=== PATIENT | female | born 1990 | race Caucasian/White ===

== ENCOUNTER 2019-08-17 12:47 | Outpatient (CLI) | payer OTHER ==
--- NOTE | 2019-08-17 17:16 | Ultrasound Report ---
PROCEDURE: OB First Trimester INDICATIONS: POSITIVE TEST OUTSIDE/PRIOR DATING DATA: Last menstrual period (LMP): 06/25/2019. LMP-based estimated date of delivery (SHARYN): 03/31/2020. First dating scan (date and location): 08/17/2019. Estimated date of delivery (SHARYN) from first dating scan: 03/29/2020. TECHNIQUE: Real-time scanning was performed of the fetus and maternal pelvic organs, with image documentation. COMPARISON: None FINDINGS: Embryo: Single live intrauterine is identified with crown-rump length measuring 1.5 cm cor responding to 7 weeks 6 days. heart rate is identified at 165 bpm. Cervical length is within no rmal limits. Measurement variability in dating: +/- 4 weeks by LMP, +/- 7 days by mean sac diameter (use before 6 weeks gestation if crown-rump length not able to be measured), +/- 5 days by crown-rump length (6-12 weeks gestation). Maternal organs: Ovaries are unremarkable, noting right-sided corpus luteal cyst.. Limited images t hrough the kidneys demonstrate no hydronephrosis. IMPRESSION: 1. Single live intrauterine with ultrasound gestational age of 17 weeks 6 days with ultraso und SHARYN of 03/29/2020. 2. Recommend follow-up imaging at 20-22 weeks for dates and anatomy. Reviewed by: Moira Rubio MD on 08/17/2019 5:15 PM PDT Approved by: Moira Rubio MD on 08/17/2019 5:15 PM PDT Station ID: [id number]
== END 2019-08-17 12:48 | disposition home or self-care (01) ==
LOC: DI 12:47
PROVIDERS: ATTEND Advanced Practice Midwife
DX: Z32.01 Encounter for pregnancy test, result positive (principal)
CPT/HCPCS: 76801

== ENCOUNTER 2019-08-26 08:00 | Outpatient (CLI) | payer OTHER ==
[2019-08-26 16:08] LABS: BILIRUBIN,URINE NEGATIVE (NEGATIVE); GLUCOSE, URINE (UA) NEGATIVE (NEGATIVE); KETONES,URINE (UA) NEGATIVE (NEGATIVE); LEUKOCYTE ESTERASE, URINE NEGATIVE (NEGATIVE); NITRITE,URINE NEGATIVE (NEGATIVE); OCCULT BLOOD,URINE NEGATIVE (NEGATIVE); PROTEIN,URINE NEGATIVE (NEGATIVE); UROBILINOGEN,URINE 0.2 (NORMAL) E.U./dL (NORMAL)
[2019-08-26 16:15] LABS: BACTERIA,URINE Many /HPF (None Seen); CLARITY,URINE HAZY (CLEAR); RBC,URINE None Seen /HPF (0-5); SQUAMOUS EPITHELIAL CELL,UR MANY Squamous (<= Few)
[2019-08-26 19:29] LABS: TRICHOMONAS VAGINALIS DNA NEGATIVE (NEGATIVE)
== END 2019-08-26 23:59 | disposition home or self-care (01) ==
LOC: LAB.R 08:00
PROVIDERS: ATTEND Radiology Diagnostic Radiology
DX: Z34.90 Encounter for supervision of normal pregnancy, unspecified, unspecified trimester (principal); Z36.89 Encounter for other specified antenatal screening; Z11.3 Encounter for screening for infections with a predominantly sexual mode of transmission
CPT/HCPCS: 81001; 87086; 87491; 87591; 87661

== ENCOUNTER 2019-12-29 14:56 | Outpatient (CLI) | payer OTHER ==
--- NOTE | 2019-12-30 08:25 | Ultrasound Report ---
PROCEDURE: OB Detailed Eval INDICATIONS: SCREENING, SUPERVISION OF OUTSIDE/PRIOR DATING DATA: Last menstrual period (LMP): 06/25/2019. LMP-based estimated date of delivery (SHARYN): 03/31/2020. First dating scan (date and location): 08/17/2019. Estimated date of delivery (SHARYN) from first dating scan: 03/29/2019. TECHNIQUE: Real-time scanning was performed of the fetus, with image documentation and biometric measurements. Endovaginal scanning: Performed COMPARISON: None. FINDINGS: General: A single living intrauterine gestation is present. Presentation: Cephalic Placenta: Placental position is anterior, without previa. Amniotic fluid index: 12.7 cm, normal for gestational age. heart rate: 140 beats per minute. Maternal cervical canal: 3.8 cm long; normal length is 2.5 cm or more. biometrics: Biparietal diameter: 7.1 cm Head circumference: 26 cm Abdominal circumference: 23 cm Femur length: 5 cm Estimated gestational age from initial scan: not applicable. Composite gestational age from present scan: 27 weeks 6 days Estimated weight and percentile: 1100 g, 63rd percentile Measurement variability in biometric dating: +/- 10 days from 12-20 weeks gestation, +/- 2 weeks from 20-30 weeks gestation, +/- 3 weeks at 30 weeks gestation or later. Anatomic survey: Neuro: Ventricles are normal at less than 10 mm. Cisterna magna is normal at 3-11 mm. Cerebellum i s normal in size and morphology. Nuchal skin fold: Normal at less than 6 mm between 14 and 20 weeks gestational age. Face: Nose and lips, facial profile are normal. Spine: No evidence for spina bifida. Heart: 4-chambered heart is present, with normal ventricular outflow tracts. Diaphragm: Diaphragm is intact. Stomach: Left-sided stomach is present. Kidneys: No hydronephrosis. Normal is less than 5 mm in 2nd trimester, less than 7 mm in 3rd trimester. Cord: 3 vessel cord has orthotopic insertion. Bladder: Normal in size. Extremities: All 4 extremities are visualized. IMPRESSION: Normal anatomic survey. Reviewed by: Robert Fu MD on 12/30/2019 8:24 AM PST Approved by: Robert Fu MD on 12/30/2019 8:24 AM PST Station ID: [id number]
== END 2019-12-29 14:57 | disposition home or self-care (01) ==
LOC: DI 14:56
PROVIDERS: ATTEND Advanced Practice Midwife
DX: Z34.92 Encounter for supervision of normal pregnancy, unspecified, second trimester (principal); Z36.89 Encounter for other specified antenatal screening
CPT/HCPCS: 76811

== ENCOUNTER 2019-12-31 17:19 | Outpatient (CLI) | payer OTHER ==
[2019-12-31 18:40] LABS: HGB - HEMOGLOBIN 11.7 g/dL (12.0-16.0); MEAN CORPUSCULAR HEMOGLOBIN 30.5 pg (27.0-31.0); MEAN CORPUSCULAR HGB CONC 34.4 g/dL (32.0-36.0); MEAN CORPUSCULAR VOLUME 88.5 fL (81.0-99.0); RED BLOOD COUNT 3.84 10^6/uL (4.20-5.40); RED CELL DISTRIBUTION WIDTH 12.8 % (12.0-15.0); WHITE BLOOD COUNT 11.1 x10^3/uL (4.8-10.8)
== END 2019-12-31 17:20 | disposition home or self-care (01) ==
LOC: LAB 17:19
PROVIDERS: ATTEND Advanced Practice Midwife
DX: Z34.90 Encounter for supervision of normal pregnancy, unspecified, unspecified trimester (principal); Z36.89 Encounter for other specified antenatal screening
CPT/HCPCS: 36415; 82950; 85027

== ENCOUNTER 2020-01-13 08:00 | Outpatient (CLI) | payer OTHER ==
[2020-01-13 21:59] LABS: CANDIDA GROUP DNA NEGATIVE (NEGATIVE); CANDIDA KRUSEI DNA NEGATIVE (NEGATIVE); TRICHOMONAS VAGINALIS DNA NEGATIVE (NEGATIVE)
== END 2020-01-13 23:59 | disposition home or self-care (01) ==
LOC: LAB.R 08:00
PROVIDERS: ATTEND Advanced Practice Midwife
DX: O99.891 Other specified diseases and conditions complicating pregnancy (principal); N89.8 Other specified noninflammatory disorders of vagina
CPT/HCPCS: 87661; 87801

== ENCOUNTER 2020-02-01 08:30 | Outpatient (CLI) | payer OTHER ==
--- NOTE | 2020-02-01 13:01 | Ultrasound Report ---
PROCEDURE: OB F/U or Repeat INDICATIONS: UTERINE SIZE > DATES DISCREPANCY OUTSIDE/PRIOR DATING DATA: Last menstrual period (LMP): 06/25/2019. LMP-based estimated date of delivery (SHARYN): 03/31/2020. First dating scan (date and location): 08/17/2019. Estimated date of delivery (SHARYN) from first dating scan: 03/29/2020. TECHNIQUE: Real-time scanning was performed of the fetus, with image documentation and biometric measurements. COMPARISON: None. FINDINGS: General: A single living intrauterine gestation is present. Presentation: Vertex Placenta: Placental position is anterior, without previa. Amniotic fluid index: 15.8 cm, 59th percentile for gestational age. heart rate: 152 beats per minute. Maternal cervical canal: 3.4 cm long; normal length is 2.5 cm or more. biometrics: Biparietal diameter: 8.3 cm, 33 weeks 3 days Head circumference: 29.9 cm, 33 weeks 1 day Abdominal circumference: 29.1 cm, 33 weeks 1 day Femur length: 5.7 cm, 30 weeks 0 days Estimated gestational age from initial scan: 31 weeks 6 days Composite gestational age from present scan: 32 weeks 1 day Estimated weight and percentile: 1931 g, 51st percentile Measurement variability in biometric dating: +/- 10 days from 12-20 weeks gestation, +/- 2 weeks from 20-30 weeks gestation, +/- 3 weeks at 30 weeks gestation or more. Other: Not applicable. IMPRESSION: Single live intrauterine gestation with biometric parameters as described above. Reviewed by: Robert Fu MD on 02/01/2020 1:00 PM PST Approved by: Robert Fu MD on 02/01/2020 1:00 PM PST Station ID: [id number]
== END 2020-02-01 08:31 | disposition home or self-care (01) ==
LOC: DI 08:30
PROVIDERS: ATTEND Advanced Practice Midwife
DX: O26.843 Uterine size-date discrepancy, third trimester (principal); Z3A.31 31 weeks gestation of pregnancy

== ENCOUNTER 2020-03-15 21:19 | Emergency (ER) | payer OTHER ==
[2020-03-15 23:15] VITALS: BP 113/76
--- NOTE | 2020-03-15 23:17 | ED Physician Documentation ---
History of Present Illness - Stated complaint Stated Complaint: RT LEG PX - Chief complaint Chief Complaint: Ext Problem - History obtained from History obtained from: Patient - History of Present Illness Timing: How many weeks ago (1) Pain level now: 0 Improved by: nothing Worsened by: no exacerbating factors - Additonal information Additional information: patient is 37w5d , c/o BLE edema x 1 week, R>L. because of gradually worsening RLE edema over past few days, she was advised by her arbitrator tonight to come to ED to r/o DVT. Review of Systems Constitutional: denies: Fever Cardiac: reports: Reviewed and negative Respiratory: reports: Reviewed and negative GI: reports: Other (intermittent suprapubic cramping pain x few days) : reports: Frequency, Now EGA (37.5). denies: Dysuria, Vaginal bleeding Skin: denies: Rash Musculoskeletal: reports: Extremity swelling PD PAST MEDICAL HISTORY - Allergies Allergies/Adverse Reactions: Allergies Allergy/AdvReac Type Severity Reaction Status Date / Time Sulfa (Sulfonamide Allergy Itching Verified 03/16/20 07:12 Antibiotics) Latex, Natural Rubber AdvReac Itching Verified 03/15/20 21:30 rubbing alcohol Allergy Rash Uncoded 03/16/20 07:12 PD ED PE NORMAL - Vitals Vital signs reviewed: Yes - General General: Alert and oriented X 3, No acute distress, Well developed/nourished - Cardiac Cardiac: RRR, No murmur - Respiratory Respiratory: No respiratory distress, Clear bilaterally Results - Vitals Vitals: Oxygen O2 Source Room air - Rads (name of study) RIGHT lower extremity US Radiology: Prelim report reviewed, See rad report, Other (US ordered/performed on RLE; preliminary reading by radiologist indicates "negative for left lower extremity deep vein thrombosis", but subsequently addended to read "study is of the right lower extremity") PD MEDICAL DECISION MAKING - ED course Complexity details: reviewed results, considered differential, d/w patient, d/w railroad design consultant ED course: brief/limited HPI/PE, as patient is 37.5 weeks and, in addition to her chief complaint of R>L edema, she also says she has been having intermittent suprapubic cramping, and thus she is cleared from standpoint of DVT (by negative RLE US result) and then discharged from ED and sent directly to arbitrator for further evaluation; I discussed this with Dr. Mohan prior to ED discharge and he agrees with this plan. Departure - Departure Disposition: 01 Home, Self Care Clinical Impression: Edema, peripheral Condition: Good Instructions: ED Edema Legs Bilateral, ED Leg Swelling Unilateral Follow-Up: Giancarlo Gonzalez DO [Primary Care Provider] - Discharge Date/Time: 03/15/20 23:22
--- NOTE | 2020-03-16 08:54 | Ultrasound Report ---
PROCEDURE: Duplex Ext Veins Right INDICATIONS: RLE swelling TECHNIQUE: Real-time imaging, as well as color and pulse Doppler interrogation, were performed of the lower extr emity deep veins from the inguinal ligament to the popliteal fossa. COMPARISON: None. FINDINGS: The deep veins are normally compressible, and free of intraluminal thrombus. Color and pu lse Doppler demonstrate normal phasic intraluminal flow. There is normal augmentation response to di stal compression maneuver. IMPRESSION: No deep venous thrombosis. The above findings are concordant with preliminary report. Reviewed by: Moira Rubio MD on 03/16/2020 8:53 AM [facility] Approved by: Moira Rubio MD on 03/16/2020 8:53 AM [facility] Station ID: [id number]
== END 2020-03-15 23:22 | disposition home or self-care (01) ==
LOC: ED 21:19
DX: O12.03 Gestational edema, third trimester (principal); O26.893 Other specified pregnancy related conditions, third trimester; R10.2 Pelvic and perineal pain; Z3A.37 37 weeks gestation of pregnancy
CPT/HCPCS: 99283; 99284

== ENCOUNTER 2020-03-15 23:20 | Outpatient (CLI) | payer OTHER ==
[2020-03-15 23:49] VITALS: BP 124/76
--- NOTE | 2020-03-16 01:53 | PREOP HISTORY & PHYSICAL ---
DATE OF SERVICE: 03/15/2020 Physician: Miguel Mohan MD IDENTIFICATION: Patient is a 29-year-old G1, P0, whose EDC is noted to be 31 March. This makes her 37 weeks 6 days. CHIEF COMPLAINT: Swelling of the left calf. HISTORY OF PRESENT ILLNESS: Patient is noting swelling of her lower extremities over the last week. She states that today she has had swelling in particular on the right calf and has noted some tenseness down there. She talked to Cherelle Johnson about this and was told to present for evaluation. She was seen in the ED today, at which time she was noted to have a negative Doppler venous flow study. She has had an unremarkable course per the patient. PAST MEDICAL HISTORY: Positive for HSV. PAST SURGICAL HISTORY: Two screws in the right ankle. ALLERGIES: LATEX. CURRENT MEDICATIONS: vitamins. HABITS: Patient denies use of alcohol, tobacco or street or addictive drugs. 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 CURRENT MEDICATIONS 1. Acyclovir. 2. vitamins. PHYSICAL EXAMINATION GENERAL: Well-developed, well-nourished female, appears to be in no acute distress. EXTREMITIES: Palpating the right calf, there is no tenderness; there is swelling in both lower extremities, the right being more than the left. There is negative Homans sign, as well as calf tenderness bilaterally. STUDIES: Patient had a Doppler venous flow study, which was noted to be negative. IMPRESSION: A 29-year-old primigravida with bilateral swelling, more on the right than the left, with a negative Doppler venous flow study. Patient has been complaining of some cramping. We will place patient on the monitor and look for evidence of contractions and/or reactive strip. TD: 03/15/2020 23:34 CEASAR
--- NOTE | 2020-03-16 08:50 | PROVIDER PROGRESS NOTE ---
- HPI Chief Complaint: Labor Check Current : Current EDU 03/31/20 Gestation 37 Weeks and 6 Days 1 Para 0 Vital Signs Heart Rate 99 03/15/20 23:30 Respiratory Rate 18 03/15/20 23:30 Blood Pressure 124/76 03/15/20 23:30 O2 Saturation 100 03/15/20 23:30 Temperature Heart Rate 99 03/15/20 23:30 Respiratory Rate 18 03/15/20 23:30 Blood Pressure 124/76 03/15/20 23:30 O2 Saturation 100 03/15/20 23:30 - Procedures OB Procedure Performed: NST NST Procedure: NST Procedure Start Date 03/16/20 Start Time 23:30 Stop Time 00:05 Vibroacoustic Stimulation Used No Patient States Movement Yes - Plan Plan: Suzi is a 29 yo at 37.5wks gestation who presented to the ED for unilateral leg swelling and discomfort/ rule out DVT She was cleared by the ED and presented to L&D for rule out term labor NST perform date 03/15/2020 NST read date 03/15/2020 Impression: NST reactive Plan: Continue with routine care Final Diagnosis: False labor
== END 2020-03-16 00:06 | disposition home or self-care (01) ==
LOC: WFO 23:20 → FBP 23:23 → WFO 03-16 00:06
PROVIDERS: ATTEND Advanced Practice Midwife
DX: O47.1 False labor at or after 37 completed weeks of gestation (principal); O99.891 Other specified diseases and conditions complicating pregnancy; M79.89 Other specified soft tissue disorders; Z3A.37 37 weeks gestation of pregnancy
CPT/HCPCS: 59025

== ENCOUNTER 2020-03-17 08:00 | Outpatient (CLI) | payer OTHER | END 2020-03-17 23:54 | disposition home or self-care (01) | LOC: LAB.R 08:00 | PROVIDERS: ATTEND Nurse Practitioner Obstetrics & Gynecology | DX: Z36.85 Encounter for antenatal screening for Streptococcus B (principal) | CPT/HCPCS: 87797 ==

== ENCOUNTER 2020-03-27 07:59 | Observation (INO) | payer OTHER ==
[2020-03-27] MEDS ORDERED: miSOPROStoL 200 MCG TABLET BC PRN (08:20)
[2020-03-27] MEDS ORDERED: LIDOCAINE-MPF 1% 30 ML VIAL ID PRN (08:20)
[2020-03-27] MEDS ORDERED: OXYTOCIN/SODIUM CHLORIDE 500 ML IV PRN (08:20)
[2020-03-27] MEDS ORDERED: ACETAMINOPHEN 325 MG TABLET PO PRN (08:20)
[2020-03-27] MEDS ORDERED: TRANEXAMIC ACID IN NACL 1,000 MG/100 ML BAG IV PRN (08:20)
[2020-03-27] MEDS ORDERED: SODIUM CHLORIDE FLUSH 0.9% 10 ML SYRINGE IVP PRN (08:20)
[2020-03-27] MEDS ORDERED: METHYLERGONOVINE 0.2 MG/ML VIAL IM PRN (08:20)
[2020-03-27] MEDS ORDERED: ONDANSETRON 4 MG/2 ML VIAL IVP PRN (08:20)
[2020-03-27] MEDS ORDERED: OXYTOCIN 10 UNIT/ML VIAL IM PRN (08:20)
[2020-03-27] MEDS ORDERED: CARBOPROST TROMETHAMINE 250 MCG/ML AMP IM PRN (08:20)
[2020-03-27] MEDS ORDERED: fentaNYL 100 MCG/2 ML VIAL IVP PRN (08:20)
--- NOTE | 2020-03-27 08:33 | HISTORY & PHYSICAL EXAMINATION ---
Admit History - Visit Reason Visit Reason: Other (Pre-Induction Cervical Ripening- Outpatient Miso) - : 1 Parity: 0 Premature: 0 Ectopic: 0 : 0 Care: positive: Other ([facility]) Risk/History: positive: Genital herpes (Tailbone presentation only- HSV II) Complications This : positive: None Smoking Status: Never smoker - Mother's Labs Mother's Blood Type: positive: O Mother's RH: positive: Positive GBS: positive: Group B Step Negative Rubella Status: positive: Immune - Other Maternal History Other Maternal History: -29yo at 39.3wks gestation who presents to Labor and Delivery for pre- induction cervical ripening- Outpatient Miso -Reports movement -Denies ctx/VB/LOF - care with [facility] which has been adequate - Complications *HSV II- presentation on tailbone only -Dating Criteria *7.3wks c/w LMP for SHARYN of 03/31/2020 -OB Hx *G1:current -Medications * vitamin-daily *Valacyclovir 1g daily -Allergies *Latex *Rubbing Alcohol *Sulfa -Medical History *Dep/Anx vs Biplar- per patient *Asthma -Surgical History *R ankle- ORIF *Breast Augmentation- saline- 2018 -Family History *Mother- Bipolar disorder, HTN *Father- CAD, HTN, gout *Twin Sister Talia- healthy, recent c/s delivery *PGF- AMI, age 47 *MGM- Bipolar -Social History *Non contributory - Labs, Immunizations, and Findings Initial US: at 7.3wks c/w LMP for SHARYN of 03/31/2020 O pos/Rubella immune Gentic testing: educated and declines FAS WNL. Anterior placenta, no previa. Size c/w dating. CHRISSY WNL. 3VC. Glucola : ordered and encouraged TDAP: 01/13/2020 FLU: 12/30/2019 GBS @ 38.0wks - neg HSV: HSV 1&2 via serology only, never had a breakout. On daily acyclovir. Breast pump Rx : 01/13/2020 MOD: (originally wanted elective c/s). Spouse: [place]. Twin sister Talia is preg (with a girl). Girl: Crissy Azevedo. pp contraception: IUD- Mirena PAP:March 2019 with ASCUS/+ high rish HPV. It appears that [facility] OB-INTERVENTION TEACHER Craig completed a colposcopy 05/18/2019; will request records. Pt reports recommendation as repeat Pap in 1yr. Will accept at 6wk pp visit -SVE closed/80%/-2/soft/post -Vertex by BSUS -EFW by minoo's- approx. 7#, baby is LOP so difficult to assess -FHTs per flowsheet -Assessment *29yo at 39.3wks gestation who presents to Labor and Delivery for pre- induction cervical ripening- Outpatient Miso *Ulloa Score 6- requires cervical ripening * Heart Tones- Category I -Plan *Admit to OBS(until active labor, SROM, AROM, epidural, or pitocin) *Cervical ripening with Misoprostol *Monitoring- Continuous *Comfort measures available- position changes, whirlpool tub, fentanyl, and epidural per maternal preference *Diet/Activity- per maternal preference *Anticipate *May discharge home four hours after Miso dose if Cat I strip and experiencing moderate/strong contractions Meds/Allgy - Allergies Allergies/Adverse Reactions: Allergies Allergy/AdvReac Type Severity Reaction Status Date / Time isopropyl alcohol Allergy Rash Verified 03/27/20 08:27 Sulfa (Sulfonamide Allergy Itching Verified 03/16/20 07:12 Antibiotics) Latex, Natural Rubber AdvReac Itching Verified 03/15/20 21:30 Review of Systems - All Other Systems All Other Systems: reports: Reviewed and negative Physical - Abdominal Exam Contraction Frequency (min/apart): none - Monitoring Heart Rate Baseline: 145 Strip Review: positive: Category I (moderate variability, accels, no decels) - Presentation Presentation: positive: Vertex - Vaginal Exam Membranes: positive: Membranes intact Dilation (in cm): 0 Effacement (%): 80 Station: positive: -2 Cervical Position: positive: Posterior Plan for Labor - Plan For Labor I expect patient to be DC'd or transferred within 96 hours.: Yes
[2020-03-27] MEDS ORDERED: LACTATED RINGERS 1,000 ML IV SCH (09:00)
[2020-03-27] MEDS ORDERED: miSOPROStoL 100 MCG TABLET BC SCH (09:00)
[2020-03-27] MEDS ORDERED: SODIUM CHLORIDE FLUSH 0.9% 10 ML SYRINGE IVP SCH (09:00)
[2020-03-27 09:05] LABS: BASOPHILS % (AUTO) 0.4 %; EOSINOPHILS # (AUTO) 0.1 10^3/uL (0.0-0.7); HGB - HEMOGLOBIN 9.6 g/dL (12.0-16.0); LYMPHOCYTES # (AUTO) 1.6 10^3/uL (1.5-3.5); LYMPHOCYTES % (AUTO) 17.4 %; MEAN CORPUSCULAR HEMOGLOBIN 26.4 pg (27.0-31.0); MEAN CORPUSCULAR HGB CONC 32.2 g/dL (32.0-36.0); MEAN CORPUSCULAR VOLUME 82.1 fL (81.0-99.0); MEAN PLATELET VOLUME 9.9 fL (7.9-10.8); MONOCYTES # (AUTO) 0.5 10^3/uL (0.0-1.0); MONOCYTES % (AUTO) 5.8 %; NEUTROPHILS # (AUTO) 6.9 10^3/uL (1.5-6.6); NEUTROPHILS % (AUTO) 74.1 %; PLT - PLATELET COUNT 227 10^3/uL (130-450); RED BLOOD COUNT 3.63 10^6/uL (4.20-5.40); RED CELL DISTRIBUTION WIDTH 12.7 % (12.0-15.0); WHITE BLOOD COUNT 9.3 x10^3/uL (4.8-10.8)
[2020-03-27 09:07] VITALS: BP 135/89
--- NOTE | 2020-03-27 12:30 | Discharge Plan ---
Discharge Plan Problem Reviewed?: Yes Disposition: Home, Self Care Condition: Good Plan of Treatment: Return tomorrow at 0800 for IOL or sooner PRN No Smoking: If you smoke, Please STOP! Call for help. Follow-up with: Cherelle Johnson ARNP [Provider Admit Priv/Credential] -
--- NOTE | 2020-03-27 12:35 | DISCHARGE SUMMARY ---
Discharge Summary Admit Date: 03/27/20 Discharge Date: 03/27/20 Discharging Provider: Cherelle Johnson CNM Condition at Discharge: Good Discharge Disposition: 01 Home, Self Care - DIAGNOSES Admission Diagnoses: with Pre-Induction cervical ripening- Outpatient MISO Discharge Diagnoses with Status of Each Condition: with pre-induction cervical ripening- stable - HPI History of Present Illness: Suzi is a 29yo at 39.3 wks gestation who presented for pre-induction cervical ripening with outpatient miso. Miso given at 0900, Cat I strip, mild contractions reported as "crampy" 1300 is four hours after miso dose and pt is appropriate for discharge home. Plan is to return on 03/28/2020 at 0800 for completion of cervical ripening and progression towards active labor - ALLERGIES Allergies/Adverse Reactions: Allergies Allergy/AdvReac Type Severity Reaction Status Date / Time isopropyl alcohol Allergy Rash Verified 03/27/20 08:27 Sulfa (Sulfonamide Allergy Itching Verified 03/16/20 07:12 Antibiotics) Latex, Natural Rubber AdvReac Itching Verified 03/15/20 21:30 - PHYSICAL EXAM AT DISCHARGE General Appearance: positive: No acute distress Neurologic/Psychiatric: positive: Oriented x3 - LABS Result Diagrams: 03/27/20 08:45 - QUALITY (Female Hip Fx Only) Was patient sent home on osteoporosis medication?: No
== END 2020-03-27 13:05 | disposition home or self-care (01) ==
LOC: WFO 07:59 → FBP 08:03 → WFO 08:19 → FBP 08:20
PROVIDERS: ADMIT Advanced Practice Midwife; ATTEND Advanced Practice Midwife
DX: O98.313 Other infections with a predominantly sexual mode of transmission complicating pregnancy, third trimester (principal); A60.09 Herpesviral infection of other urogenital tract; Z3A.39 39 weeks gestation of pregnancy; Z20.822 Contact with and (suspected) exposure to COVID-19
CPT/HCPCS: 85025; 86850; 86900; 86901; 87635; A9270; G0378

== ENCOUNTER 2020-03-28 07:53 | Inpatient (IN) | payer OTHER ==
[2020-03-28] MEDS ORDERED: ONDANSETRON 4 MG/2 ML VIAL IVP PRN ×2 (09:11→17:13)
[2020-03-28] MEDS ORDERED: LIDOCAINE-MPF 1% 30 ML VIAL ID PRN (09:11)
[2020-03-28] MEDS ORDERED: miSOPROStoL 200 MCG TABLET BC PRN (09:11)
[2020-03-28] MEDS ORDERED: SODIUM CHLORIDE FLUSH 0.9% 10 ML SYRINGE IVP PRN (09:11)
[2020-03-28] MEDS ORDERED: METHYLERGONOVINE 0.2 MG/ML VIAL IM PRN (09:11)
[2020-03-28] MEDS ORDERED: TRANEXAMIC ACID IN NACL 1,000 MG/100 ML BAG IV PRN (09:11)
[2020-03-28] MEDS ORDERED: OXYTOCIN 10 UNIT/ML VIAL IM PRN (09:11)
[2020-03-28] MEDS ORDERED: fentaNYL 100 MCG/2 ML VIAL IVP PRN (09:11)
[2020-03-28] MEDS ORDERED: CARBOPROST TROMETHAMINE 250 MCG/ML AMP IM PRN (09:11)
[2020-03-28] MEDS ORDERED: OXYTOCIN/SODIUM CHLORIDE 500 ML IV PRN (09:11)
--- NOTE | 2020-03-28 09:21 | HISTORY & PHYSICAL EXAMINATION ---
Admit History - Visit Reason Visit Reason: Other (Pre-Induction Cervical Ripening) - : 1 Parity: 0 Premature: 0 Ectopic: 0 : 0 Care: positive: Other ([facility]) Risk/History: positive: None Complications This : positive: None Smoking Status: Never smoker - Mother's Labs Mother's Blood Type: positive: O Mother's RH: positive: Positive GBS: positive: Group B Step Negative Rubella Status: positive: Immune - Other Maternal History Other Maternal History: -29yo at 39.4wks gestation who presents to Labor and Delivery for pre- induction cervical ripening -Reports movement -Denies ctx/VB/LOF - care with [facility] which has been adequate - Complications *HSV II- presentation on tailbone only. No current outbreak. Prophylaxis since 36wks -Dating Criteria *7.3wks c/w LMP for SHARYN of 03/31/2020 -OB Hx *G1:current -Medications * vitamin-daily *Valacyclovir 1g daily -Allergies *Latex *Rubbing Alcohol *Sulfa -Medical History *Dep/Anx vs Biplar- per patient *Asthma -Surgical History *R ankle- ORIF *Breast Augmentation- saline- 2018 -Family History *Mother- Bipolar disorder, HTN *Father- CAD, HTN, gout *Twin Sister Talia- healthy, recent c/s delivery *PGF- AMI, age 47 *MGM- Bipolar -Social History *Non contributory - Labs, Immunizations, and Findings Initial US: at 7.3wks c/w LMP for SHARYN of 03/31/2020 O pos/Rubella immune Gentic testing: educated and declines FAS WNL. Anterior placenta, no previa. Size c/w dating. CHRISSY WNL. 3VC. Glucola : ordered and encouraged TDAP: 01/13/2020 FLU: 12/30/2019 GBS @ 38.0wks - neg HSV: HSV 1&2 via serology only. On daily acyclovir. Breast pump Rx : 01/13/2020 MOD: (originally wanted elective c/s). Spouse: [place]. Twin sister Talia is preg (with a girl). Girl: Crissy Azevedo. pp contraception: IUD- Mirena PAP:March 2019 with ASCUS/+ high rish HPV. It appears that [facility] OB-[facility] M[facility] OPERATOR Craig completed a colposcopy 05/18/2019; will request records. Pt reports recommendation as repeat Pap in 1yr. Will accept at 6wk pp visit -SVE closed/80%/-2/soft/mid -Vertex by digital exam -EFW by minoo'yelitza- approx. 7#, baby is LOP so difficult to assess -FHTs per flowsheet -Assessment *29yo at 39.4wks gestation who presents to Labor and Delivery for pre- induction cervical ripening *Ulloa Score 7- requires cervical ripening * Heart Tones- Category I -Plan *Admit to OBS(until active labor, SROM, AROM, epidural, or pitocin) *Cervical ripening with Misoprostol *Monitoring- Continuous *Comfort measures available- position changes, whirlpool tub, fentanyl, and epidural per maternal preference *Diet/Activity- per maternal preference *Anticipate Meds/Allgy - Allergies Allergies/Adverse Reactions: Allergies Allergy/AdvReac Type Severity Reaction Status Date / Time isopropyl alcohol Allergy Rash Verified 03/27/20 08:27 Sulfa (Sulfonamide Allergy Itching Verified 03/16/20 07:12 Antibiotics) Latex, Natural Rubber AdvReac Itching Verified 03/15/20 21:30 Review of Systems - All Other Systems All Other Systems: reports: Reviewed and negative Physical - Abdominal Exam Vital Signs: Temp Pulse Resp BP Pulse Ox 37 C 03/28/20 08:31 Contraction Frequency (min/apart): none Uterine Resting Tone: positive: Soft - Monitoring Heart Rate Baseline: 150 Strip Review: positive: Category I - Presentation Presentation: positive: Vertex - Vaginal Exam Membranes: positive: Membranes intact Dilation (in cm): 0 Effacement (%): 80 Station: positive: -2 Cervical Position: positive: Midposition Plan for Labor - Plan For Labor I expect patient to be DC'd or transferred within 96 hours.: Yes
[2020-03-28] MEDS: miSOPROStoL 100 MCG TABLET BC SCH ×2 (09:37→13:31)
[2020-03-28 09:43] LABS: BASOPHILS % (AUTO) 0.4 %; EOSINOPHILS # (AUTO) 0.1 10^3/uL (0.0-0.7); HGB - HEMOGLOBIN 9.9 g/dL (12.0-16.0); LYMPHOCYTES # (AUTO) 1.2 10^3/uL (1.5-3.5); LYMPHOCYTES % (AUTO) 15.5 %; MEAN CORPUSCULAR HEMOGLOBIN 26.9 pg (27.0-31.0); MEAN CORPUSCULAR HGB CONC 32.4 g/dL (32.0-36.0); MEAN CORPUSCULAR VOLUME 83.2 fL (81.0-99.0); MEAN PLATELET VOLUME 9.9 fL (7.9-10.8); MONOCYTES # (AUTO) 0.4 10^3/uL (0.0-1.0); MONOCYTES % (AUTO) 5.7 %; NEUTROPHILS # (AUTO) 5.9 10^3/uL (1.5-6.6); NEUTROPHILS % (AUTO) 76.6 %; PLT - PLATELET COUNT 230 10^3/uL (130-450); RED BLOOD COUNT 3.68 10^6/uL (4.20-5.40); RED CELL DISTRIBUTION WIDTH 12.7 % (12.0-15.0); WHITE BLOOD COUNT 7.7 x10^3/uL (4.8-10.8)
[2020-03-28] MEDS ORDERED: LACTATED RINGERS 1,000 ML IV SCH (10:00)
[2020-03-28] MEDS ORDERED: diphenhydrAMINE 25 MG CAPSULE PO PRN (10:06)
[2020-03-28] MEDS: ACETAMINOPHEN 325 MG TABLET PO PRN ×2 (16:04→23:12)
[2020-03-28] MEDS ORDERED: ROPIVACAINE 0.2% 200 MG/100 ML BAG EP ONE (16:51)
[2020-03-28] MEDS ORDERED: SODIUM CHLORIDE FLUSH 0.9% 10 ML SYRINGE IVP SCH (17:00)
[2020-03-28] MEDS ORDERED: NALBUPHINE 10 MG/ML AMP IVP PRN (17:13)
[2020-03-28] MEDS ORDERED: ePHEDrine 50 MG/ML VIAL IVP PRN (17:13)
[2020-03-28] MEDS ORDERED: METOCLOPRAMIDE 10 MG/2 ML VIAL IVP PRN (17:13)
[2020-03-28] MEDS ORDERED: diphenhydrAMINE INJ 50 MG/ML VIAL IVP PRN (17:13)
[2020-03-28] MEDS ORDERED: ROPIVACAINE 0.2% 200 MG/100 ML BAG EP PRN (17:13)
[2020-03-28] MEDS ORDERED: NALOXONE 0.4 MG/ML VIAL IVP PRN (17:13)
--- NOTE | 2020-03-28 17:17 | ANESTHESIA ---
Pre-Anesthesia VS, & Labs - Diagnosis IUP, IOL - Procedure Vital Signs: Temp Pulse Resp BP Pulse Ox 37 C 03/28/20 08:31 Height: 5 ft 8 in Weight (kg): 97.522 kg Body Mass Index: 32.6 BMI Classification: Obese - NPO Last Fluid Intake: t/o day Last Food Intake: full lunch - Is Patient ?: Yes - Lab Results Current Lab Results: Laboratory Tests 03/28/20 09:35: WBC 7.7, RBC 3.68 L, Hgb 9.9 L, Hct 30.6 L, MCV 83.2, MCH 26.9 L , MCHC 32.4, RDW 12.7, Plt Count 230, MPV 9.9, Neut # (Auto) 5.9, Lymph # (Auto) 1.2 L, [place] # (Auto) 0.4, Eos # (Auto) 0.1, Baso # (Auto) 0.0, Absolute Nucleated RBC 0.00, Nucleated RBC % 0.0 Lab results reviewed: Yes Fish Bones: 03/28/20 09:35 Home Medications and Allergies Active Medications Acetaminophen (Acetaminophen 325 Mg Tablet) 650 mg PO Q6H PRN PRN Reason: Pain or Fever Last Admin: 03/28/20 16:04 Dose: 650 mg Documented by: Carboprost Tromethamine (Carboprost Tromethamine 250 Mcg/Ml Amp) 250 mcg IM Q15M PRN PRN Reason: Step 4: Hemorrhage protocol Stop: 04/02/20 09:14 Diphenhydramine HCl (Diphenhydramine 25 Mg Capsule) 25 mg PO QPM PRN PRN Reason: Insomnia Diphenhydramine HCl (Diphenhydramine Inj 50 Mg/Ml Vial) 12.5 - 25 mg IVP Q6HR PRN PRN Reason: ITCHING Ephedrine Sulfate (Ephedrine 50 Mg/Ml Vial) 5 mg IVP Q5M PRN PRN Reason: For SBP<100;give until SBP>100 Fentanyl (Fentanyl 100 Mcg/2 Ml Vial) 50 mcg IVP Q1H PRN PRN Reason: PAIN Oxytocin/Sodium Chloride (Pitocin/Sodium Chloride) 500 mls @ 999 mls/hr IV PRN PRN; Protocol PRN Reason: POST- HEMORR PREVENTION Stop: 04/02/20 09:14 Tranexamic Acid (Tranexamic 1,000 Mg/100ml-Nacl) 1,000 mg in 100 mls @ 600 mls/hr IV .ONCE PRN PRN Reason: EBL >1200mL and within 3hr Stop: 04/02/20 09:14 Lactated Ringer's (Lr) 1,000 mls @ 100 mls/hr IV .Q10H [facility] Last Admin: 03/28/20 15:50 Dose: 999 mls/hr Documented by: Ropivacaine (Naropin 0.2%) 200 mg in 100 mls @ 0 mls/hr EP PRN PRN; Protocol PRN Reason: PAIN Lidocaine HCl (Lidocaine-Mpf 1% 30 Ml Vial) 30 ml ID .ONCE PRN PRN Reason: PERINEAL REPAIR Stop: 04/02/20 09:14 Methylergonovine Maleate (Methylergonovine 0.2 Mg/Ml Vial) 0.2 mg IM .ONCE PRN PRN Reason: Step 2: Hemorrhage protocol Stop: 04/02/20 09:14 Metoclopramide HCl (Metoclopramide 10 Mg/2 Ml Vial) 10 mg IVP Q6HR PRN PRN Reason: Nausea / Vomiting Misoprostol (Misoprostol 200 Mcg Tablet) 800 mcg BC .ONCE PRN PRN Reason: Step 3: Hemorrhage protocol Stop: 04/02/20 09:14 Misoprostol (Misoprostol 100 Mcg Tablet) 50 mcg BC Q4HR [facility] Last Admin: 03/28/20 13:31 Dose: 50 mcg Documented by: Nalbuphine HCl (Nalbuphine 10 Mg/Ml Amp) 2.5 - 5 mg IVP Q4H PRN PRN Reason: ITCHING Naloxone HCl (Naloxone 0.4 Mg/Ml Vial) 0.1 mg IVP Q2M PRN PRN Reason: RR<8 Ondansetron HCl (Ondansetron 4 Mg/2 Ml Vial) 4 mg IVP Q4HR PRN PRN Reason: Nausea / Vomiting Ondansetron HCl (Ondansetron 4 Mg/2 Ml Vial) 4 mg IVP Q6HR PRN PRN Reason: Nausea / Vomiting Oxytocin (Oxytocin 10 Unit/Ml Vial) 10 unit IM .ONCE PRN PRN Reason: Step one: If no IV access Stop: 04/02/20 09:14 Sodium Chloride (Sodium Chloride Flush 0.9% 10 Ml Syringe) 10 ml IVP 0100,090 0,1700 LEIDA Sodium Chloride (Sodium Chloride Flush 0.9% 10 Ml Syringe) 10 ml IVP PRN PRN PRN Reason: NEEDED PER PROVIDER ORDERS Allergies/Adverse Reactions: Allergies Allergy/AdvReac Type Severity Reaction Status Date / Time isopropyl alcohol Allergy Rash Verified 03/27/20 08:27 Sulfa (Sulfonamide Allergy Itching Verified 03/16/20 07:12 Antibiotics) Latex, Natural Rubber AdvReac Itching Verified 03/15/20 21:30 Anes History & Medical History - Anesthetic History Anesthesia Complications: reports: No previous complications Family history of Anesthesia Complications: Denies Family history of Malignant Hyperthermia: Denies - Medical History Cardiovascular: reports: None Pulmonary: reports: None Gastrointestinal: reports: None Urinary: reports: None Neuro: reports: None Musculoskeletal: reports: None Blood Disorders: reports: None Skin: reports: None Smoking Status: Never smoker Psychosocial: reports: No issues indicated History of Cancer?: No - Surgical History Orthopedic: Other ("ankle screws" as a child) - Obstetrical History : 1 Parity: 0 Events: positive: None Complications: positive: None Exam General: Alert, Oriented x3, Cooperative Dental: WNL Mouth Opening: Greater than 4 Fingerbreadths Neck Mobility: Normal Mallampati classification: II Thyromental Distance: 4-6 cm Respiratory: No respiratory distress Cardiovascular: Regular rate Neurological: Normal speech Mental/Cognitive Status: Alert/Oriented X3, Normal for patient Cognitive Status: Within normal limits Plan Anesthesia Type: Epidural Consent for Procedure(s) Verified and Reviewed: Yes Code Status: Attempt Resuscitation ASA classification: 2-Mild systemic disease Is this case an emergency?: No
[2020-03-28] MEDS ORDERED: SODIUM CHLORIDE 0.9% 0 ML ONE (20:41)
[2020-03-28] MEDS ORDERED: LIDOCAINE-PF 2% 10 ML AMP SUBQ ONE (20:41)
[2020-03-28] MEDS ORDERED: fentaNYL 100 MCG/2 ML VIAL ONE (20:41)
--- NOTE | 2020-03-28 21:35 | DELIVERY NOTE ---
Delivery Note - Labor Labor: positive: Spontaneous, Other (Cervical ripening followed with spontaneous labor.) - Infant Delivery Method Delivery Method: positive: Spontaneous vaginal delivery - Cervical Ripening Method Cervical Ripening Method: positive: Misoprostil - Presentation Presentation: positive: Vertex, Compound, ALDEN - left occiput anterior - Nuchal Cord Nuchal Cord: positive: Present - Amniotic Fluid Description Amniotic Fluid Description: positive: Clear - Laceration Laceration: positive: 2nd degree, Other (Edematous tissue, superficial 2nd vs deep 1st degree laceration) - Suture Suture Type: positive: Vicryl Suture Size: positive: 3-0 - Delivery Outcome Delivery Outcome: positive: Livebirth - [place] : positive: Placed in direct skin contact with mother, Stimulated, [place] used [place] sex: positive: Female : 8 : 9 - Cord Cord: positive: 3 vessels - Placenta Placenta: positive: Intact, Spontaneous - Estimated Blood Loss Estimated Blood Loss (in cc): 300 - Post Delivery Events Post Delivery Events: positive: No post delivery events - Delivery Comments (Free Text/Narrative) Delivery Comments (Free Text/Narrative): STAGE I: Patient is a 29 yo at 39+4 wga admitted by Cheerlle Johnson CNM for elective induction of labor. Induction process started with outpatient cervical ripening with misoprostol 50 mcg BC x1 on 03/27/2020. Patient was admitted 03/28/2020 at which time she received an additional 2 doses of misopr ostol. She started bernardo spontaneously and pitocin augmentation was not indicated. GBS negative. Epidural for pain management. Artificial rupture of membranes at 20:03 for clear fluid. Complete at 17:22. Cat I tracing until at 18:00, at 18:50 developed sustained tachycardia with intermittent decels. STAGE II: Patient labored down until 18:20. She pushed with coaching until delivery at 20:32. At 19:45, Dr. Hyatt was called into assess clinical scenario due to intolerance of labor. Patient was deemed to be close to delivery and we opted to proceed with attempt at . We experimented with manipulation of the public arch prior to offering a vacuum assisted delivery. Patient was able to push baby to the introitus without intervention. was delivered from an ALDEN and compound presentation without difficulty. Right shoulder anterior. Nuchal cord was reduced at the perineum. Upon delivery, infant was noted to have an additional nuchal cord with a bandolier cord cross ing the chest. Infant was vigorous at delivery and was placed on maternal chest. Cord clamping was delayed until pulsations were complete. It was then clamped x2 and cut. Apgars were 8/[address] Ashraf of Pediatrics was present for delivery. Resuscitative measures were not indicated. STAGE III: Placenta was delivered spontaneously by Cherelle Johnson CNM. It was examined and found to be intact. Perineum was examined There was a right lateral sulcal tear as well as as right periurethral and a midline perineal tear, shallow second degree vs deep first degree. Lacerations were repaired with 3-0 Vicryl in the usual sterile fashion in layers. Patient continued to have greater than average bleeding. She was given misoprostol 600 mcg IA x1 to assist with uterine tonicity. Total EBL 300 cc. Cherelle Johnson CNM managed labor through most of 2nd stage and all of third stage. Remained present for all aspects of delivery process. Queta Hyatt MD assisted with delivery and perineal repair.
[2020-03-28] MEDS ORDERED: HYDROCORTISONE 1% CREAM 28 GM TUBE PR PRN (21:38)
[2020-03-28] MEDS ORDERED: WITCH HAZEL/GLYCERIN 1 PAD TOP PRN (21:38)
[2020-03-28] MEDS ORDERED: MAGNESIUM HYDROXIDE 2,400 MG/30 ML UDC PO PRN (21:38)
[2020-03-28] MEDS: IBUPROFEN 600 MG TABLET PO SCH (23:12)
[2020-03-29] MEDS: IBUPROFEN 600 MG TABLET PO SCH ×3 (08:07→21:22)
[2020-03-29] MEDS: DOCUSATE SODIUM 100 MG CAPSULE PO SCH (08:08)
[2020-03-29] MEDS: ACETAMINOPHEN 325 MG TABLET PO PRN ×2 (12:15→21:31)
[2020-03-30] MEDS ORDERED: oxyCODONE 5 MG TABLET PO ONE (00:37)
[2020-03-30] MEDS: IBUPROFEN 600 MG TABLET PO SCH ×2 (06:49→12:17)
[2020-03-30] MEDS: ACETAMINOPHEN 325 MG TABLET PO PRN ×2 (06:49→12:17)
[2020-03-30 09:56] VITALS: BP 135/77
--- NOTE | 2020-03-30 10:33 | PROVIDER PROGRESS NOTE ---
Subjective - Prog Note Date Prog Note Date: 03/29/20 Prog Note Time: 10:00 - Subjective Pt reports feeling: Improved Subjective: S: Suzi is resting in bed, holding baby girl Woodward. FOB is currently showering; is very supportive. Experiencing some difficulty with due to flat nipples, utilizing a nipple shield. Reports bleeding as a normal period O: Fundus firm Lochia Rubra A: 29yo s/p on pp day 1 Normal recovery P: Continue routine care Evaluate for discharge home tomorrow Objective - Vital Signs/Intake & Output Vital Signs: Vital Signs x48h Temp Pulse Resp BP BP Pulse Ox 03/30/20 09:35 37.0 C 87 16 135/77 H 100 03/30/20 06:05 36.8 C 76 16 115/70 93 Intake & Output: Intake & Output 03/27/20 03/28/20 03/29/20 03/30/20 23:59 23:59 23:59 23:59 Output Total 102 Balance -102 - Lab Results Fish Bones: 03/28/20 09:35
--- NOTE | 2020-03-30 11:01 | Discharge Plan ---
Discharge Plan Problem Reviewed?: Yes Disposition: Home, Self Care Condition: Good Additional Instructions or Follow Up instructions: Follow up with Midwifery at 1 and 6 weeks No Smoking: If you smoke, Please STOP! Call for help. Follow-up with: Cherelle Johnson ARNP [Provider Admit Priv/Credential] -
--- NOTE | 2020-03-30 11:21 | DISCHARGE SUMMARY ---
Discharge Summary Admit Date: 03/28/20 Discharge Date: 03/30/20 Condition at Discharge: Good Discharge Disposition: 01 Home, Self Care - HPI History of Present Illness: Admit Date 03/28/2020 Discharge Date 03/30/2020 Diagnosis on Admission: 1. A 29yo at 39.4 week intrauterine 2. Elective Induction of Labor 3. 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 Diagnosis on Discharge 1. A 29yo s/p spontaneous vaginal delivery on 03/28/2020 2. Normal recovery Brief History: She is a patient at [facility] who presented on 03/28/2020 for elective induction of labor with misoprostol following outpatient cervical ripening the day before. The patient began to contract every 1 to 5 minutes and her cervix progressed to complete at 1722. She spontaneously delivered a viable female named Crissy with the assistance of Dr Hyatt. Apgars were 8 and 9- and 1 and 5 minutes respectively. EBL 300mL. The patient has a 2nd degree laceration that was repaired with 3-0 vicryl in usual fashion under sterile conditions. She has been doing well in her course. She is ambulating and tolerating a regular diet. She is urinating without difficulty and her lochia is normal. Her pain is well controlled with oral medications, although she required one dose of opioid coverage last night, possibly fatigue related. She will be discharged home today on day #2 without need for prescriptions. She intends to follow up with Midwifery at [facility] in 1, and 6 weeks for routine visit. She has been given precautions to call if she has any worsening fevers, chills, abdominal pain, increased bleeding or foul smelling vaginal lochia. - ALLERGIES Allergies/Adverse Reactions: Allergies Allergy/AdvReac Type Severity Reaction Status Date / Time isopropyl alcohol Allergy Rash Verified 03/27/20 08:27 Sulfa (Sulfonamide Allergy Itching Verified 03/16/20 07:12 Antibiotics) Latex, Natural Rubber AdvReac Itching Verified 03/15/20 21:30 - LABS Result Diagrams: 03/28/20 09:35
[2020-03-30] MEDS: DOCUSATE SODIUM 100 MG CAPSULE PO SCH (11:37)
--- NOTE | 2020-03-30 13:28 | Labor Flowsheet ---
Labor Flowsheet Datetime Report Generated by CPN: 03/30/2020 13:28 Datetime: 03/30/2020 09:30 VITAL SIGNS NBP Sys/Yaima/Mean (mmHg): 135 : 77 : 88 Pulse: 89 Datetime: 03/29/2020 01:00 SpO2 (%): 98 Datetime: 03/28/2020 22:30 Stage of : Recovery PAIN Pain Scale: 0 Pain Presence: None/Denies Datetime: 03/28/2020 22:00 Respirations: 18 Datetime: 03/28/2020 21:00 Temperature (C): 37.1 ANESTHESIA Anesthesia Plans: Epidural Anesthesia Level Check: T10- Umbilicus Datetime: 03/28/2020 20:58 Membranes Ruptured Date/Time: 03/28/2020 20:02 Datetime: 03/28/2020 20:43 Temperature Route: Oral LaborFlag: Labor Datetime: 03/28/2020 20:31 COMMUNICATION Communication: Provider at Bedside Provider Notified (Name): Shari Communication Comments: Redose for pain Datetime: 03/28/2020 20:17 Patient Position/Activity: Left Tilt; Right Tilt Datetime: 03/28/2020 20:15 UTERINE ACTIVITY Monitor Mode: External Frequency (min): 2-4 Quality: Strong Duration (sec): 50-70 Resting Tone (Palpate): Relaxed ASSESSMENT A Monitor Mode: External US FHR Baseline Rate : 165 Variability: Minimal - Undetectable to <=5 bpm Decelerations: Prolonged Actions for Decelerations: Side to Side Category: Category II Oxygen Amount (LPM): 10 Oxygen Method: Non-Rebreather Datetime: 03/28/2020 20:02 Membrane Status: Ruptured Membranes Rupture Method: Artificial Amniotic Fluid Color: Clear Amniotic Fluid Amount: Moderate Amniotic Fluid Odor: Normal Datetime: 03/28/2020 19:29 Patient Care Comments: from R-tilt Datetime: 03/28/2020 19:10 I/O Interventions: [place] Discontinued Datetime: 03/28/2020 19:00 Pattern: Normal: <= 5 Contractions in 10 Minutes Accelerations: None Datetime: 03/28/2020 18:50 PATIENT CARE IV/Blood Work: IV Bolus Started Datetime: 03/28/2020 18:25 Monitor Interventions for UA: [place] Adjusted Datetime: 03/28/2020 18:24 STAGE 2 Pushing: Coached on Pushing Pushing Position: Pushing with Contractions; Pushing Lithotomy Datetime: 03/28/2020 17:22 VAGINAL EXAM Dilatation (cm): 10.0 Effacement (%): 100 Station: -1 Exam by: H Cary RN Datetime: 03/28/2020 17:05 Epidural Procedure Other: Pump Started Datetime: 03/28/2020 17:00 Contraction Comments: poor tracing d/t patient positioning for epidural. RN @ bedside for toco adju stments. Comments: indeterminate baseline. patient seated for epidural with RN at bedside adjusting US. Datetime: 03/28/2020 16:58 Epidural Procedure: Loading Dose Datetime: 03/28/2020 16:45 Epidural Positioning: Sitting Datetime: 03/28/2020 16:42 PROCEDURE TIME OUT Procedure Verify: Correct Patient Identity; Accurate Procedure Consent Form; Agreement on Procedure to be Done Anesthesia Comments: CLINICAL SCIENCE CONSULTANT Canales @ bedside to consent patient. Datetime: 03/28/2020 16:20 Pain Coping: Requesting Pain Medication or Epidural Pain Assessment Comments: Patient requesting epidural Datetime: 03/28/2020 16:18 Cervix, Consistency: Soft Cervix, Position: Midposition Datetime: 03/28/2020 16:05 Pain Type: Pressure Pain Location: Perineum Datetime: 03/28/2020 16:04 MEDICATIONS Analgesics/Sedatives: Tylenol (mg) @ 650 Datetime: 03/28/2020 13:31 Cervical Ripening Agents: Cytotec @ Datetime: 03/28/2020 11:25 Monitor Interventions for FHR: Ultrasound Adjusted
== END 2020-03-30 12:25 | disposition home or self-care (01) | DRG 806 ==
LOC: WFO 07:53 → FBP 08:00 → WFO 09:10 → FBP 09:11 → OBSVTOIN 19:40
PROVIDERS: ADMIT Advanced Practice Midwife; ATTEND Advanced Practice Midwife
PROC: 10907ZC Drainage of Amniotic Fluid, Therapeutic from Products of Conception, Via Natural or Artificial Opening (ICD-10-PCS; 2020-03-28)
PROC: 10E0XZZ Delivery of Products of Conception, External Approach (ICD-10-PCS; principal; 2020-03-29)
PROC: 0KQM0ZZ Repair Perineum Muscle, Open Approach (ICD-10-PCS; 2020-03-29)
DX: O98.32 Other infections with a predominantly sexual mode of transmission complicating childbirth (principal); O72.1 Other immediate postpartum hemorrhage; Z37.0 Single live birth; A60.09 Herpesviral infection of other urogenital tract; O76 Abnormality in fetal heart rate and rhythm complicating labor and delivery; O64.5XX0 Obstructed labor due to compound presentation, not applicable or unspecified; O70.1 Second degree perineal laceration during delivery; O69.81X0 Labor and delivery complicated by cord around neck, without compression, not applicable or unspecified; O69.2XX0 Labor and delivery complicated by other cord entanglement, with compression, not applicable or unspecified; Z3A.39 39 weeks gestation of pregnancy; Z79.899 Other long term (current) drug therapy
CPT/HCPCS: 36415; 85025; A9270; G0378; J7120

== ENCOUNTER 2020-04-10 08:00 | Outpatient (CLI) | payer OTHER | END 2020-04-10 23:59 | disposition home or self-care (01) | LOC: LAB.R 08:00 | PROVIDERS: ATTEND Advanced Practice Midwife | DX: N81.89 Other female genital prolapse (principal) | CPT/HCPCS: 87070; 87205 ==

== ENCOUNTER 2020-11-10 08:00 | Outpatient (CLI) | payer OTHER ==
[2020-11-10 17:22] LABS: BILIRUBIN,URINE NEGATIVE (NEGATIVE); GLUCOSE, URINE (UA) NEGATIVE (NEGATIVE); KETONES,URINE (UA) NEGATIVE (NEGATIVE); LEUKOCYTE ESTERASE, URINE SMALL (NEGATIVE); NITRITE,URINE NEGATIVE (NEGATIVE); OCCULT BLOOD,URINE NEGATIVE (NEGATIVE); PH,URINE 5.5 PH (5.0-7.5); PROTEIN,URINE NEGATIVE (NEGATIVE); UROBILINOGEN,URINE 0.2 (NORMAL) E.U./dL (NORMAL)
[2020-11-10 17:23] LABS: CLARITY,URINE CLOUDY (CLEAR)
[2020-11-10 17:42] LABS: BACTERIA,URINE Moderate /HPF (None Seen); RBC,URINE 0-5 /HPF (0-5); SQUAMOUS EPITHELIAL CELL,UR MOD Squamous (<= Few)
== END 2020-11-10 23:59 | disposition home or self-care (01) ==
LOC: LAB.WC 08:00
PROVIDERS: ATTEND Obstetrics & Gynecology
DX: Z32.01 Encounter for pregnancy test, result positive (principal)
CPT/HCPCS: 81001; 87086

== ENCOUNTER 2020-11-18 16:31 | Outpatient (CLI) | payer OTHER ==
[2020-11-18 17:33] LABS: BASOPHILS % (AUTO) 0.6 %; EOSINOPHILS # (AUTO) 0.2 10^3/uL (0.0-0.7); EOSINOPHILS % (AUTO) 2.2 %; HCT - HEMATOCRIT 34.4 % (37.0-47.0); LYMPHOCYTES # (AUTO) 1.5 10^3/uL (1.5-3.5); LYMPHOCYTES % (AUTO) 21.2 %; MEAN CORPUSCULAR HEMOGLOBIN 25.9 pg (27.0-31.0); MEAN CORPUSCULAR VOLUME 81.1 fL (81.0-99.0); MEAN PLATELET VOLUME 8.7 fL (7.9-10.8); MONOCYTES # (AUTO) 0.4 10^3/uL (0.0-1.0); MONOCYTES % (AUTO) 6.2 %; NEUTROPHILS # (AUTO) 4.8 10^3/uL (1.5-6.6); NEUTROPHILS % (AUTO) 69.5 %; PLT - PLATELET COUNT 274 10^3/uL (130-450); RED BLOOD COUNT 4.24 10^6/uL (4.20-5.40); RED CELL DISTRIBUTION WIDTH 13.5 % (12.0-15.0)
--- NOTE | 2020-11-18 18:10 | Ultrasound Report ---
PROCEDURE: OB First Trimester w/TV INDICATIONS: POSITIVE TEST OUTSIDE/PRIOR DATING DATA: Last menstrual period (LMP): 09/22/2020. LMP-based estimated date of delivery (SHARYN): 06/29/2021. First dating scan (date and location): 11/18/2020, physician's office. Estimated date of delivery (SHARYN) from first dating scan: 07/02/2021. The below data below was generated using the ultrasound SHARYN of 07/02/2021 TECHNIQUE: Real-time scanning was performed of the fetus and maternal pelvic organs, with image documentation. Endovaginal scanning was also performed to better visualize the fetus and maternal ovaries. COMPARISON: None FINDINGS: Embryo: Hood-rump length measures 1.4 cm, 7 weeks 5 days . A yolk sac is noted. Heart rate: 166 bpm Measurement variability in dating: +/- 4 weeks by LMP, +/- 7 days by mean sac diameter (use before 6 weeks gestation if crown-rump length not able to be measured), +/- 5 days by crown-rump length (6-12 weeks gestation). Maternal organs: Left ovarian corpus luteal cyst. It measures 2.0 x 1.8 x 1.7 cm. IMPRESSION: Living very early first trimester intrauterine with crown-rump length and heart beat measur ing 7 weeks 5 days Reviewed by: Panchito Gaxiola MD on 11/18/2020 6:09 PM PDT Approved by: Panchito Gaxiola MD on 11/18/2020 6:09 PM PDT Station ID: [id number]
[2020-11-20 16:01] LABS: HIV AG/AB 4TH GEN NON-REACTIVE (NON-REACTIVE)
[2020-11-20 17:11] LABS: HEPATITIS B SURFACE ANTIGEN NON-REACTIVE (NON-REACTIVE); HEPATITIS C ANTIBODY NON-REACTIVE (NON-REACTIVE)
== END 2020-11-18 16:32 | disposition home or self-care (01) ==
LOC: DI 16:31
PROVIDERS: ATTEND Obstetrics & Gynecology
DX: Z32.01 Encounter for pregnancy test, result positive (principal); Z36.89 Encounter for other specified antenatal screening
CPT/HCPCS: 36415; 85025; 86592; 86762; 86787; 86803; 86850; 86900; 86901; 87340; 87389

== ENCOUNTER 2020-11-24 07:00 | Outpatient (CLI) | payer OTHER ==
[2020-11-24 18:20] LABS: BILIRUBIN,URINE NEGATIVE (NEGATIVE); GLUCOSE, URINE (UA) NEGATIVE (NEGATIVE); KETONES,URINE (UA) NEGATIVE (NEGATIVE); LEUKOCYTE ESTERASE, URINE LARGE (NEGATIVE); NITRITE,URINE NEGATIVE (NEGATIVE); OCCULT BLOOD,URINE TRACE-INTA (NEGATIVE); PROTEIN,URINE NEGATIVE (NEGATIVE); UROBILINOGEN,URINE 0.2 (NORMAL) E.U./dL (NORMAL)
[2020-11-24 18:26] LABS: BACTERIA,URINE Many /HPF (None Seen); CLARITY,URINE SL. CLOUDY (CLEAR); RBC,URINE 0-5 /HPF (0-5); SQUAMOUS EPITHELIAL CELL,UR MOD Squamous (<= Few); WBC,URINE >25 /HPF (0-5)
[2020-11-24 22:57] LABS: CHLAMYDIA TRACHOMATIS DNA NEGATIVE (NEGATIVE); NEISSERIA GONORRHOEAE DNA NEGATIVE (NEGATIVE); TRICHOMONAS VAGINALIS DNA NEGATIVE (NEGATIVE)
== END 2020-11-24 23:59 | disposition home or self-care (01) ==
LOC: LAB 07:00
PROVIDERS: ATTEND Obstetrics & Gynecology
DX: Z34.90 Encounter for supervision of normal pregnancy, unspecified, unspecified trimester (principal); Z36.89 Encounter for other specified antenatal screening
CPT/HCPCS: 81001; 87086; 87491; 87591; 87661

== ENCOUNTER 2020-12-18 11:58 | Outpatient (CLI) | payer OTHER | END 2020-12-18 11:59 | disposition home or self-care (01) | LOC: RT 11:58 | PROVIDERS: ATTEND Psychiatry & Neurology Psychiatry | DX: Z79.899 Other long term (current) drug therapy (principal) | CPT/HCPCS: 93005 ==

== ENCOUNTER 2020-12-22 08:00 | Outpatient (CLI) | payer OTHER ==
[2020-12-22 16:31] LABS: BILIRUBIN,URINE NEGATIVE (NEGATIVE); GLUCOSE, URINE (UA) NEGATIVE (NEGATIVE); KETONES,URINE (UA) TRACE mg/dL (NEGATIVE); LEUKOCYTE ESTERASE, URINE NEGATIVE (NEGATIVE); NITRITE,URINE NEGATIVE (NEGATIVE); OCCULT BLOOD,URINE NEGATIVE (NEGATIVE); PH,URINE 5.5 PH (5.0-7.5); PROTEIN,URINE NEGATIVE (NEGATIVE); UROBILINOGEN,URINE 0.2 (NORMAL) E.U./dL (NORMAL)
[2020-12-22 16:37] LABS: CLARITY,URINE CLOUDY (CLEAR)
[2020-12-22 16:53] LABS: RBC,URINE None Seen /HPF (0-5); SQUAMOUS EPITHELIAL CELL,UR NONE SEEN (<= Few); WBC,URINE 0-3 /HPF (0-5)
[2020-12-22 16:54] LABS: AMORPHOUS SEDIMENT,UR Marked /LPF; BACTERIA,URINE Few /HPF (None Seen)
== END 2020-12-22 23:59 | disposition home or self-care (01) ==
LOC: LAB 08:00
PROVIDERS: ATTEND Obstetrics & Gynecology
DX: R10.9 Unspecified abdominal pain (principal)
CPT/HCPCS: 81001; 87086

== ENCOUNTER 2021-03-02 08:00 | Outpatient (CLI) | payer OTHER ==
[2021-03-02 16:20] LABS: BILIRUBIN,URINE NEGATIVE (NEGATIVE); GLUCOSE, URINE (UA) NEGATIVE (NEGATIVE); KETONES,URINE (UA) NEGATIVE (NEGATIVE); LEUKOCYTE ESTERASE, URINE SMALL (NEGATIVE); NITRITE,URINE NEGATIVE (NEGATIVE); OCCULT BLOOD,URINE NEGATIVE (NEGATIVE); PH,URINE 5.5 PH (5.0-7.5); PROTEIN,URINE NEGATIVE (NEGATIVE); UROBILINOGEN,URINE 0.2 (NORMAL) E.U./dL (NORMAL)
[2021-03-02 16:23] LABS: CLARITY,URINE CLOUDY (CLEAR)
[2021-03-02 17:01] LABS: AMORPHOUS SEDIMENT,UR Marked /LPF; BACTERIA,URINE Many /HPF (None Seen); RBC,URINE 0-5 /HPF (0-5); SQUAMOUS EPITHELIAL CELL,UR MOD Squamous (<= Few)
[2021-03-03 00:17] LABS: CHLAMYDIA TRACHOMATIS DNA NEGATIVE (NEGATIVE); NEISSERIA GONORRHOEAE DNA NEGATIVE (NEGATIVE); TRICHOMONAS VAGINALIS DNA NEGATIVE (NEGATIVE)
[2021-03-03 03:09] LABS: BACTERIAL VAGINOSIS DNA NEGATIVE (NEGATIVE)
[2021-03-03 08:44] LABS: CANDIDA GLABRATA DNA UNRESOLVED (NEGATIVE); CANDIDA GROUP DNA UNRESOLVED (NEGATIVE); CANDIDA KRUSEI DNA UNRESOLVED (NEGATIVE); TRICHOMONAS VAGINALIS DNA UNRESOLVED (NEGATIVE)
== END 2021-03-02 23:59 ==
LOC: LAB.WC 08:00
PROVIDERS: ATTEND Obstetrics & Gynecology
DX: R30.0 Dysuria (principal); N76.0 Acute vaginitis; N72 Inflammatory disease of cervix uteri
CPT/HCPCS: 81001; 87086; 87491; 87591; 87661; 87801

== ENCOUNTER 2021-03-07 08:00 | Outpatient (CLI) | payer OTHER ==
[2021-03-07 22:31] LABS: BACTERIAL VAGINOSIS DNA NEGATIVE (NEGATIVE); CANDIDA GLABRATA DNA NEGATIVE (NEGATIVE); CANDIDA GROUP DNA POSITIVE (NEGATIVE); CANDIDA KRUSEI DNA NEGATIVE (NEGATIVE); TRICHOMONAS VAGINALIS DNA NEGATIVE (NEGATIVE)
== END 2021-03-07 23:59 ==
LOC: LAB 08:00
PROVIDERS: ATTEND Nurse Practitioner Obstetrics & Gynecology
DX: N76.0 Acute vaginitis (principal)
CPT/HCPCS: 87661; 87801

== ENCOUNTER 2021-03-09 14:28 | Outpatient (CLI) | payer OTHER | END 2021-03-09 14:29 | disposition home or self-care (01) | LOC: LAB.N 14:28 | PROVIDERS: ATTEND Obstetrics & Gynecology | DX: Z32.01 Encounter for pregnancy test, result positive (principal) | CPT/HCPCS: 36415; 84702 ==

== ENCOUNTER 2021-03-20 15:43 | Outpatient (CLI) | payer OTHER | END 2021-03-20 15:44 | disposition home or self-care (01) | LOC: LAB.N 15:43 | PROVIDERS: ATTEND Obstetrics & Gynecology | DX: Z32.01 Encounter for pregnancy test, result positive (principal) | CPT/HCPCS: 36415; 84702 ==

== ENCOUNTER 2021-07-10 08:00 | Outpatient (CLI) | payer OTHER ==
--- NOTE | 2021-07-10 17:39 | XRAY Report ---
PROCEDURE: Ankle 3 View RT INDICATIONS: R ANKLE PX TECHNIQUE: 3 views of the ankle were acquired. COMPARISON: None FINDINGS: Bones: No fractures or dislocations. Ankle mortise is normally aligned. No suspicious bony lesions . Orthopedic screws fixating the medial malleolus are seen. The mortise is intact. Soft tissues: Soft tissue swelling over the lateral malleolus. Achilles tendon appears normal. IMPRESSION: 1. No fracture. 2. Postoperative changes of the medial malleolus without complication. 3. Soft tissue swelling over the lateral malleolus consistent with ligamentous injury. Reviewed by: Jimenez Myers on 07/10/2021 5:38 PM PDT Approved by: Jimenez Myers on 07/10/2021 5:38 PM PDT Station ID: [id number]
== END 2021-07-10 23:59 | disposition home or self-care (01) ==
LOC: DI.N 08:00
PROVIDERS: ATTEND Physician Assistant
DX: M25.571 Pain in right ankle and joints of right foot (principal); R93.6 Abnormal findings on diagnostic imaging of limbs; R93.89 Abnormal findings on diagnostic imaging of other specified body structures; Z96.698 Presence of other orthopedic joint implants

== ENCOUNTER 2021-12-28 13:27 | Outpatient (CLI) | payer OTHER ==
[2021-12-28 14:39] LABS: HCT - HEMATOCRIT 31.2 % (37.0-47.0); HGB - HEMOGLOBIN 9.7 g/dL (12.0-16.0); MEAN CORPUSCULAR HEMOGLOBIN 24.2 pg (27.0-31.0); MEAN CORPUSCULAR HGB CONC 31.1 g/dL (32.0-36.0); MEAN CORPUSCULAR VOLUME 77.8 fL (81.0-99.0); MEAN PLATELET VOLUME 9.3 fL (7.9-10.8); RED BLOOD COUNT 4.01 10^6/uL (4.20-5.40); RED CELL DISTRIBUTION WIDTH 13.6 % (12.0-15.0); WHITE BLOOD COUNT 12.3 x10^3/uL (4.8-10.8)
== END 2021-12-28 13:28 | disposition home or self-care (01) ==
LOC: LAB 13:27
PROVIDERS: ATTEND Nurse Practitioner Obstetrics & Gynecology
DX: Z36.9 Encounter for antenatal screening, unspecified (principal)
CPT/HCPCS: 36415; 82950; 85027

== ENCOUNTER 2022-02-26 11:57 | Inpatient (IN) | payer OTHER ==
[2022-02-26] MEDS ORDERED: lidocaine 1% 20 ML MDV ID PRN (12:05)
[2022-02-26] MEDS ORDERED: NIFEdipine 10 MG CAPSULE PO PRN (12:05)
[2022-02-26] MEDS ORDERED: hydrALAZINE INJ 20 MG/ML VIAL IVP PRN ×2 (12:05)
[2022-02-26] MEDS ORDERED: OXYTOCIN/SODIUM CHLORIDE 500 ML IV PRN (12:05)
[2022-02-26] MEDS ORDERED: miSOPROStoL 200 MCG TABLET BC PRN (12:05)
[2022-02-26] MEDS ORDERED: TERBUTALINE 1 MG/ML VIAL SUBQ PRN (12:05)
[2022-02-26] MEDS ORDERED: CARBOPROST TROMETHAMINE 250 MCG/ML AMP IM PRN (12:05)
[2022-02-26] MEDS ORDERED: METHYLERGONOVINE 0.2 MG/ML VIAL IM PRN (12:05)
[2022-02-26] MEDS ORDERED: TRANEXAMIC ACID IN NACL 1,000 MG/100 ML BAG IV PRN (12:05)
[2022-02-26] MEDS ORDERED: LABETALOL 20 MG/4 ML SYRINGE IVP PRN ×3 (12:05)
[2022-02-26] MEDS ORDERED: SODIUM CHLORIDE FLUSH 0.9% 10 ML SYRINGE IVP PRN (12:05)
[2022-02-26] MEDS ORDERED: fentaNYL 100 MCG/2 ML VIAL IVP PRN (12:05)
[2022-02-26] MEDS ORDERED: miSOPROStoL 200 MCG TABLET PR PRN (12:05)
[2022-02-26] MEDS ORDERED: OXYTOCIN 10 UNIT/ML VIAL IM PRN (12:05)
[2022-02-26] MEDS ORDERED: LACTATED RINGERS 1,000 ML IV ONE (12:18)
[2022-02-26 13:21] LABS: BASOPHILS % (AUTO) 0.1 %; EOSINOPHILS # (AUTO) 0.2 10^3/uL (0.0-0.7); EOSINOPHILS % (AUTO) 1.9 %; HCT - HEMATOCRIT 30.8 % (37.0-47.0); HGB - HEMOGLOBIN 9.3 g/dL (12.0-16.0); LYMPHOCYTES # (AUTO) 1.2 10^3/uL (1.5-3.5); LYMPHOCYTES % (AUTO) 15.3 %; MEAN CORPUSCULAR HGB CONC 30.2 g/dL (32.0-36.0); MEAN CORPUSCULAR VOLUME 72.8 fL (81.0-99.0); MEAN PLATELET VOLUME 9.5 fL (7.9-10.8); MONOCYTES # (AUTO) 0.4 10^3/uL (0.0-1.0); MONOCYTES % (AUTO) 4.8 %; PLT - PLATELET COUNT 258 10^3/uL (130-450); RED BLOOD COUNT 4.23 10^6/uL (4.20-5.40); RED CELL DISTRIBUTION WIDTH 17.2 % (12.0-15.0); WHITE BLOOD COUNT 7.8 x10^3/uL (4.8-10.8)
[2022-02-26] MEDS ORDERED: miSOPROStoL 100 MCG TABLET BC SCH (15:00)
[2022-02-26] MEDS: LACTATED RINGERS 1,000 ML IV SCH (16:13)
--- NOTE | 2022-02-26 17:12 | HISTORY & PHYSICAL EXAMINATION ---
Admit History - Visit Reason Visit Reason: Other - : 5 Parity: 1 Premature: 0 Ectopic: 0 : 3 Care: positive: [facility] Risk/History: positive: None Complications This : positive: Other Smoking Status: Never smoker - Mother's Labs Mother's Blood Type: positive: O Mother's RH: positive: Positive GBS: positive: Group B Step Negative Rubella Status: positive: Immune Meds/Allgy - Allergies Allergies/Adverse Reactions: Allergies Allergy/AdvReac Type Severity Reaction Status Date / Time isopropyl alcohol Allergy Rash Verified 03/27/20 08:27 Sulfa (Sulfonamide Allergy Itching Verified 03/16/20 07:12 Antibiotics) Latex, Natural Rubber AdvReac Itching Verified 03/15/20 21:30 Review of Systems - Constitutional Constitutional: denies: Fatigue, Fever, Chills, Malaise - Eyes Eyes: denies: Blurred vision, Spots in vision, Dipolpia - Ears, Nose & Throat Ears, Nose & Throat: reports: Nasal congestion - Cardiovascular Cariovascular: denies: Irregular heart rate, Palpitations, Chest pain, Edema, Lightheadedness - Respiratory Respiratory: denies: Cough, Wheezing, SOB at rest - Gastrointestinal Gastrointestinal: denies: Abdominal pain, Abdominal distention, Constipation, Diarrhea, Nausea - Genitourinary Genitourinary: denies: Dysuria, Frequency - Musculoskeletal Musculoskeletal: denies: Back pain - Integumentary Integumentary: denies: Rash, Pruritis - Neurological Neurological: denies: Headache, Dizziness - Psychiatric Psychiatric: reports: Anxiety. denies: Depression - Hematologic/Lymphatic Hematologic/Lymphatic: denies: Anemia Physical - Abdominal Exam Vital Signs: Temp Pulse Resp BP Pulse Ox O2 Flow Rate 37.1 C 02/26/22 15:18 Contraction Frequency (min/apart): occasional Contraction Intensity: positive: Mild Uterine Resting Tone: positive: Soft - Monitoring Heart Rate Baseline: 170 Strip Review: positive: Category II - Presentation Presentation: positive: Vertex - Vaginal Exam Membranes: positive: Membranes intact Dilation (in cm): 2 Effacement (%): 50 Station: positive: -3 Cervical Position: positive: Posterior - Speculum Exam Speculum Exam Performed: positive: No Plan for Labor - Plan For Labor I expect patient to be DC'd or transferred within 96 hours.: Yes Plan for Labor: HPI: This 31yo @ 39.0wks gestation by LMP c/w 8.4wk U/S presented to [facility] at 1200 for elective induction of labor. She denies vaginal bleeding or leakage of fluid and reports +FM. She has experienced nasal congestion for the past 7 days and had a full respiratory panel at the walk in clinic which was negative. She contracted COVID during her first trimester and approximately 2 months ago tested positive for influenza A. 3 weeks ago she tested positive for RSV. Upon arrival SVE was deferred initially secondary to absence of contractions. FHR baseline 170s with moderate variability, no accels, no decels. She was given 1000mL LR over 1 hour and tachycardia resolved. She has been a patient of [facility] for the duration of her which has remained uncomplicated with the exception of her repeated viral illnesses in and mild anemia for which she was treated with PO FeSo4. 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 Dating criteria: LMP 05/29/2021 Initial U/@ @ 8.4wks c/w LMP dating Serial exams -agree manifest/order organizer print orders Hx: Term NSVB x 1. SAB x2 (16wks & 4wks). TAB x 1. Last pap 02/2021 w/ colposcopy secondary to ASCUS with +HR HPV. Medical Hx: biopolar disorder; genital HSV-2 Surgical Hx: none Family Hx: heart disease- PGF; diabetes- MGM, maternal aunts Meds: PNV, sertraline 50mg, latuda 40mg Allergies: None known Social: , lives with Humphrey. Works at [employer] in [place]. No tobacco, ETOH or recreational drug use. Caffeine intake -minimal. course: O positive, antibody negative Rubella immune; varicella non-immune Genetic screening - declined FAS WNL with the exception of poor visualization of spine. Anterior placenta, no previa. Size c/w dating. 3VC. F/u ultrasound spine suboptimally visualized. No gross abnormality seen. Glucola 114 Covid vaccine x 2 and booster 12/2020 Tdap received Influenza vaccine - declined GBS negative Physical exam: Normocephalic, atraumatic Heart RRR w/o M/G/R Lungs CTAB Abdomen gravid, soft, nontender EFW 3200g FHR baseline 170s, moderate variability, no accels, no decels Contractions palpate mild intermittently with soft resting tone SVE deferred. Bilateral LE's trace edema. Mood is good. Assessment: 31yo @ 39.0wks gestation by LMP c/w 8.4wk U/S Elective IOL tachycardia Maternal tachycaria GBS neg FHR Category II Plan: Initiate 1000mL LR over 1 hour. Continuous monitoring Initial 50mcg BC misoprostol s/p resolution of tachycardia. Jacuzzi PRN. Nitrous oxide PRN. Epidural per maternal request. Anticipate .
--- NOTE | 2022-02-26 17:44 | PROVIDER PROGRESS NOTE ---
Labor Progress Note - Uterine Monitoring Uterine Monitoring Mode: positive: External toco Contraction Frequency (min/apart): intermittent Contraction Intensity: positive: Mild Uterine Resting Tone: positive: Soft - Monitoring Monitor Mode: positive: External ultrasound Heart Rate Baseline: 170 Heart Rate Variability: positive: Moderate (6-25 bmp) Accelerations: positive: Absent Decelerations: positive: Late, Variable, Intermittent (<50% x20 min) Strip Review: positive: Category II - Vaginal Exam Dilation (in cm): 2 Effacement (%): 50 Station: -3 Cervical Position: Posterior - Labor Progress Note Labor Progress Note/Additional Text: S: Feeling occasional mild menstrual-like cramping with some contractions. She denies FERRARA, visual disturbances, RUQ or epigastric pain. Discussed status with her and reviewed concern for impaired placental perfusion vs maternal dehydration as evidenced by tachycardia and intermittent variable and late decelerations. Reviewed options and pt states she would like to exhaust all options before moving forward with delivery. She is supported by her Adelita and her friends. O: FHR baseline 150, moderate variability, + accels, occasional variable deceleration Contractions palpate mild intermittently with soft resting tone SVE 2/50/-3, posterior and vertex. AROM at 1705 noted to be a small amount of clear fluid s/p 1 dose 50mcg BC misoprostol at 1500. A: 31yo @ 39.0wks gestation by LMP c/w 8.4wk U/S FHR Category II - overall reassuring at present time GBS neg P: D/C misoprostol. Expectant management x 4 hours s/p AROM. Continuous monitoring. Jacuzzi PRN. Nitrous oxide PRN. Epidural per maternal request. Consulted with formulation chemist physician who is in agreement with above plan. Repeat SVE in 4 hours or sooner if needed.
[2022-02-26] MEDS ORDERED: ROPIVACAINE 0.2% 200 MG/100 ML BAG EP ONE (18:35)
[2022-02-26] MEDS ORDERED: HYDROcod/ACETAM 5/325 MG TABLET PO PRN (19:17)
[2022-02-26] MEDS ORDERED: WITCH HAZEL/GLYCERIN 1 PAD TOP PRN (19:17)
[2022-02-26] MEDS ORDERED: HYDROCORTISONE 1% CREAM 28 GM TUBE PR PRN (19:17)
--- NOTE | 2022-02-26 19:31 | DELIVERY NOTE ---
Delivery Note - Labor Labor: positive: Induced by ARM - Infant Delivery Method Delivery Method: positive: Spontaneous vaginal delivery - Cervical Ripening Method Cervical Ripening Method: positive: Misoprostil - Presentation Presentation: positive: Vertex, ALDEN - left occiput anterior - Nuchal Cord Nuchal Cord: positive: Present - Amniotic Fluid Description Amniotic Fluid Description: positive: Clear - Episiotomy Type Episiotomy Type: positive: None - Laceration Laceration: positive: None - Delivery Outcome Delivery Outcome: positive: Livebirth - [place]: positive: Placed in direct skin contact with mother, Stimulated, Warmed, [place] used sex: positive: Female - Cord Cord: positive: 3 vessels - Placenta Placenta: positive: Intact, Spontaneous - Estimated Blood Loss Estimated Blood Loss (in cc): 100 - Post Delivery Events Post Delivery Events: positive: No post delivery events - Delivery Comments (Free Text/Narrative) Delivery Comments (Free Text/Narrative): Labor: This 31yo @ 39.0wks gestation by LMP c/w 8.4wk U/S presented on 02/26/2022 for elective IOL. Initially FHR was tachycardic at 170bpm. She was given 1000mL LR bolus and tachycardia resolved. She was given 50mc BC misoprostol x 1 and approximately 1 hour later tachycardia returned with addition of intermittent heart rate variable and late decelerations. Cervix was 2/50/-3, posterior and vertex with intact membranes. AROM occurred at 1705 and was noted to be a small amount of clear fluid. FHR pattern demonstrated Category II pattern throughout labor however remained overall reassuring. Pt progressed precipitously to c/c/+2 at 1842. : Normal SVB of viable female infant on 02/26/2022 @ 1850. Nuchal cord x 2 we delivered through. The was stimulated, dried, and placed skin to skin. Apgars were 9/9 at 1 and 5 minutes respectively. Pitocin administered via IV for hemostasis. The umbilical cord was allowed to stop pulsating at which time it was doubly clamped by CNM and cut by FOB. Cord blood was obtained. 3VC. Fundal massage and gentle cord traction applied for active management of the t hird stage. Placenta delivered spontaneously and intact @ 1857. EBL 100mL. Fourth stage: Uterine fundus firm and there is no excessive bleeding. The perineum, vagina, and cervix were inspected and noted to be intact. Skin to skin contact initiated. Family bonding well. Both mother and baby were left in stable condition.
[2022-02-26] MEDS: IBUPROFEN 800 MG TABLET PO SCH (19:44)
[2022-02-26] MEDS: SODIUM CHLORIDE FLUSH 0.9% 10 ML SYRINGE IVP SCH (19:55)
[2022-02-26] MEDS: DOCUSATE SODIUM 100 MG CAPSULE PO SCH (22:22)
[2022-02-26] MEDS: ACETAMINOPHEN 500 MG TABLET PO SCH (23:25)
[2022-02-27] MEDS: IBUPROFEN 800 MG TABLET PO SCH ×3 (03:17→16:32)
[2022-02-27] MEDS: ACETAMINOPHEN 500 MG TABLET PO SCH ×3 (03:20→21:05)
[2022-02-27] MEDS: SODIUM CHLORIDE FLUSH 0.9% 10 ML SYRINGE IVP SCH (08:41)
[2022-02-27] MEDS: FERROUS SULFATE 325 MG TABLET PO SCH ×2 (09:01→21:05)
[2022-02-27] MEDS: DOCUSATE SODIUM 100 MG CAPSULE PO SCH ×2 (09:01→21:05)
[2022-02-27] MEDS: LACTATED RINGERS 1,000 ML IV SCH (09:16)
--- NOTE | 2022-02-27 12:14 | Discharge Plan ---
Discharge Plan Problem Reviewed?: Yes Disposition: Home, Self Care Condition: Good Diet: Regular Activity Restrictions: No Restrictions Shower Restrictions: No Driving Restrictions: No Weight Bearing: Full Weight Instruction Topics: Vaginal After No Smoking: If you smoke, Please STOP! Call for help. Follow-up with: Shreya Abad CNM, ARNP [Primary Care Provider] - 1 Week (Phone call with Shreya Abad CNM/PREM 03/05/2021 @ 3830.)
--- NOTE | 2022-02-27 12:26 | DISCHARGE SUMMARY ---
Discharge Summary Condition at Discharge: Good Discharge Disposition: 01 Home, Self Care - HOSPITAL COURSE Hospital Course: Date of Admission: 02/26/2022 Date of Discharge: 02/27/2022 Diagnosis on Admission: 1. 31yo @ 39.0wks gestation by LMP c/w 8.4wk U/S 2. Elective IOL 3. tachycardia 4. Maternal tachycaria 5. GBS neg 6. FHR Category II Diagnosis on Discharge: 1. 31yo PPD#1 s/p TSVB viable female infant 2. 3. Normal recovery Brief History: She is a patient of [facility] who presented on 02/26/2022 for elective induction of labor at 39.0wks gestation. Upon arrival she was noted to be tachycardia with tachycardia also noted. She received 1000mL LR fluid bolus and tachycardia resolved. Throughout labor FHR was mostly Category II with intermittent periods of Category I tracing and remained overall reassuri ng. She received 1 dose of 50mcg BC misoprostol for pre-induction cervical ripening and AROM occurred at 1705 and was noted to be a small amount of clear fluid. She progressed precipitously to spontaneously deliver a viable female infant on 02/26/2022 @ 1850. Nuchal cord x 2 was delivered through. Apgars were 9/9 at 1 and 5 minutes respectively. 3VC. EBL 100mL. The perineum, vagina, and cervix were noted to be intact. She has been doing well in her course. She is ambulating and tolera ting a regular diet. She is urinating without difficulty and her lochia is normal. She is bonding well with her baby and she is without difficulty. She will be discharged home today on day #1 with instructions to continue taking her vitamin while and to continue taking ibuprofen and tylenol over the counter as needed for pain management. She intends to follow up with myself at [facility] in 1 week for routine visit or sooner if needed. She has been given precautions to call if she has any worsening fevers, chills, abdominal pain, increased vaginal bleeding or foul smelling vaginal lochia. Physical Exam: normocephalic, atraumatic. Heart RRR w/o M/G/R, lungs CTAB, abdomen soft and nontender with fundus firm at U, perineum intact, light lochia rubra, bilateral LE's trace edema. Mood is good. - ALLERGIES Allergies/Adverse Reactions: Allergies Allergy/AdvReac Type Severity Reaction Status Date / Time isopropyl alcohol Allergy Rash Verified 03/27/20 08:27 Sulfa (Sulfonamide Allergy Itching Verified 03/16/20 07:12 Antibiotics) Latex, Natural Rubber AdvReac Itching Verified 03/15/20 21:30 - LABS Result Diagrams: 02/26/22 12:25
[2022-02-28 00:18] VITALS: BP 133/86
--- NOTE | 2022-02-28 00:28 | Labor Flowsheet ---
Labor Flowsheet Datetime Report Generated by CPN: 02/28/2022 00:28 Datetime: 02/27/2022 21:02 VITAL SIGNS NBP Sys/Yaima/Mean (mmHg): 133 : 86 : 95 Pulse: 92 Datetime: 02/27/2022 00:29 SpO2 (%): 99 Datetime: 02/26/2022 19:40 Membranes Ruptured Date/Time: 02/26/2022 17:05 MEDICATIONS Cervical Ripening Agents: Cytotec @ Datetime: 02/26/2022 19:10 Stage of : Recovery Datetime: 02/26/2022 18:54 LaborFlag: Labor Datetime: 02/26/2022 18:44 UTERINE ACTIVITY Monitor Mode: External Frequency (min): 2-3 Quality: Moderate Duration (sec): 60-100 Pattern: Normal: <= 5 Contractions in 10 Minutes Resting Tone (Palpate): Relaxed FHR Baseline Rate : 150 Variability: Minimal - Undetectable to <=5 bpm Decelerations: None Category: Category II Datetime: 02/26/2022 18:42 VAGINAL EXAM Dilatation (cm): 10.0 Effacement (%): 100 Station: 2 Exam by: LORAINE Abad Datetime: 02/26/2022 18:41 Comments: difficulty tracing FHR d/t maternal position Datetime: 02/26/2022 18:39 COMMUNICATION Communication Comments: CNM Pollo called to room Datetime: 02/26/2022 18:36 Pain Assessment Comments: Anesthesia at bedside with consents Datetime: 02/26/2022 18:30 ASSESSMENT A Monitor Mode: External US Accelerations: 15X15 Datetime: 02/26/2022 17:45 Monitor Interventions for UA: [place] Adjusted Datetime: 02/26/2022 17:37 Contraction Comments: toco adjusted Datetime: 02/26/2022 17:32 Respirations: 16 Temperature (C): 37.1 Temperature Route: Oral Datetime: 02/26/2022 17:30 PAIN Pain Scale: 5 Pain Presence: Intermittent Pain Type: Cramping Pain Location: Abdomen Pain Goal: 6 Datetime: 02/26/2022 17:05 Membranes Rupture Method: Artificial Amniotic Fluid Color: Clear Amniotic Fluid Amount: Small Datetime: 02/26/2022 16:30 Actions for Decelerations: Side to Side; Provider Notified; Other Medication Comments: 250 ml LR bolus done Datetime: 02/26/2022 16:25 Vaginal Exam Comments: CNM Pollo Datetime: 02/26/2022 15:19 Patient Care Comments: sitting on birthing ball Datetime: 02/26/2022 14:59 Monitor Interventions for FHR: Ultrasound Adjusted Datetime: 02/26/2022 14:16 PATIENT CARE I/O Interventions: Up to BR Datetime: 02/26/2022 13:00 FHR Baseline Changes: Tachycardia
== END 2022-02-27 21:35 | disposition home or self-care (01) | DRG 806 ==
LOC: WFO 11:57 → FBP 11:58 → WFO 12:05
PROVIDERS: ADMIT Nurse Practitioner Obstetrics & Gynecology; ATTEND Nurse Practitioner Obstetrics & Gynecology
PROC: 10907ZC Drainage of Amniotic Fluid, Therapeutic from Products of Conception, Via Natural or Artificial Opening (ICD-10-PCS; principal; 2022-02-26)
PROC: 10E0XZZ Delivery of Products of Conception, External Approach (ICD-10-PCS; 2022-02-26)
PROC: 3E0DXGC Introduction of Other Therapeutic Substance into Mouth and Pharynx, External Approach (ICD-10-PCS; 2022-02-26)
DX: O76 Abnormality in fetal heart rate and rhythm complicating labor and delivery (principal); O98.32 Other infections with a predominantly sexual mode of transmission complicating childbirth; Z37.0 Single live birth; O99.892 Other specified diseases and conditions complicating childbirth; R00.0 Tachycardia, unspecified; O69.81X0 Labor and delivery complicated by cord around neck, without compression, not applicable or unspecified; A60.09 Herpesviral infection of other urogenital tract; O99.02 Anemia complicating childbirth; Z20.822 Contact with and (suspected) exposure to COVID-19; Z3A.39 39 weeks gestation of pregnancy; Z79.899 Other long term (current) drug therapy; Z86.16 Personal history of COVID-19; Z87.09 Personal history of other diseases of the respiratory system
CPT/HCPCS: 85025; 86850; 86900; 86901; 87635; 96360; A9270; G0378; J7120

== ENCOUNTER 2022-03-03 16:00 | Emergency (ER) | payer OTHER ==
--- NOTE | 2022-03-03 16:48 | ED Physician Documentation ---
History of Present Illness - Stated complaint Stated Complaint: HIGH BP,BLURRED VISION - Chief complaint Chief Complaint: Cardiac - Additonal information Additional information: History is obtained from the patient who is a reliable historian. Also obtained additional data by review of the [facility] medical chart 31-year-old female presents to the emergency department for evaluation of elevated blood pressures in the period. She is 5 days having delivered vaginally a healthy infant at 39 weeks. This was an elective induction. She was followed by Shreya White the quill collector. Patient reports that at home when checking her blood pressures with a wrist monitor she has had blood pressures as high as 190/100 though here in the emergency department they are seemingly more reasonable 135/80. She endorses a mild headache and some blurry vision. No vomiting abdominal pain. No chest pain or shortness of air. She does have some mild pedal edema bilaterally. Patient does have a small amount of vaginal bleeding that she describes as. Like. No foul smell. No fevers. At the time of my evaluation in the emergency department Dr. Mcintyre has the OB available on-call has come in to evaluate the patient. Review of Systems Constitutional: reports: Reviewed and negative Throat: reports: Reviewed and negative Cardiac: reports: Pedal edema Respiratory: reports: Reviewed and negative GI: reports: Reviewed and negative : reports: Reviewed and negative Skin: reports: Reviewed and negative Musculoskeletal: reports: Reviewed and negative Neurologic: reports: Headache, Other (Blurry vision) PD PAST MEDICAL HISTORY - Past Medical History Cardiovascular: None Respiratory: None Neuro: None GI: None : None Musculoskeletal: None Derm: None - Past Surgical History Ortho: Other ("ankle screws" as a child) - Present Medications Home Medications: Ambulatory Orders Medication Instructions Recorded Confirmed NIFEdipine [Procardia Xl] 30 mg PO DAILY #14 tablet 03/03/22 - Allergies Allergies/Adverse Reactions: Allergies Allergy/AdvReac Type Severity Reaction Status Date / Time isopropyl alcohol Allergy Rash Verified 03/27/20 08:27 Sulfa (Sulfonamide Allergy Itching Verified 03/16/20 07:12 Antibiotics) Latex, Natural Rubber AdvReac Itching Verified 03/15/20 21:30 - Social History Does the pt smoke?: No Smoking Status: Never smoker Does the pt drink ETOH?: No Does the pt have substance abuse?: No - Immunizations Immunizations are current?: Yes - POLST Patient has POLST: No PD ED PE NORMAL - General General: Alert and oriented X 3, No acute distress - HEENT HEENT: PERRL - Neck Neck: Supple, no meningeal sign, No adenopathy - Cardiac Cardiac: RRR, No murmur - Respiratory Respiratory: No respiratory distress, Clear bilaterally - Abdomen Abdomen: Normal bowel sounds, Soft, Non tender - Back Back: No CVA TTP, No spinal TTP - Derm Derm: Normal color, Warm and dry, No rash - Extremities Extremities: No deformity, No tenderness to palpate. No: No edema (Bilateral pedal edema nonpitting. No calf pain tenderness swelling or erythema) - Neuro Neuro: Alert and oriented X 3, briefcase sewer 2-12 intact Eye Opening: Spontaneous Motor: Obeys Commands Verbal: Oriented GCS Score: 15 Results - Vitals Vitals: Vital Signs - 24 hr 03/03/22 03/03/22 03/03/22 16:16 16:55 17:23 Temperature 37.0 C Heart Rate 72 67 Respiratory 20 17 Rate Blood Pressure 152/86 H 138/94 H 136/83 H O2 Saturation 99 97 03/03/22 03/03/22 17:30 18:00 Temperature Heart Rate 60 65 Respiratory 14 19 Rate Blood Pressure 146/92 H 141/85 H O2 Saturation 99 97 Oxygen O2 Source Room air - Labs Labs: Laboratory Tests 03/03/22 03/03/22 03/03/22 16:29 16:29 16:29 WBC 7.8 RBC 4.24 Hgb 9.4 L Hct 32.5 L MCV 76.7 L MCH 22.2 L MCHC 28.9 L RDW 17.5 H Plt Count 298 MPV 9.2 Neut # (Auto) 5.7 Lymph # (Auto) 1.3 L [place] # (Auto) 0.4 Eos # (Auto) 0.2 Baso # (Auto) 0.0 Absolute Nucleated RBC 0.00 Nucleated RBC % 0.0 Manual Slide Review Indicated WBC Morphology NORMAL APPEARANCE Platelet Estimate NORMAL (130-450,000) Platelet Morphology NORMAL APPEARANCE RBC Morph Micro Appear 1+ POLYCHROMASIA Sodium 139 Potassium 3.7 Chloride 103 Carbon Dioxide 25 Anion Gap 11.0 BUN 10 Creatinine 0.6 Estimated GFR (MDRD) 117 Glucose 81 Uric Acid 5.7 Calcium 9.3 Phosphorus 3.7 Magnesium 1.7 Total Bilirubin 0.5 AST 31 ALT 31 Alkaline Phosphatase 114 Lactate Dehydrogenase 238 H Total Protein 6.9 Albumin 2.9 L Globulin 4.0 Albumin/Globulin Ratio 0.7 L Urine Creatinine Urine Microalbumin Microalb/Creat Ratio Ur Total Protein Timed Protein/Creatinin Ratio Nasal Adenovirus (PCR) Nasal B. parapertussis DNA (PCR) Nasal Coronavir 229E PCR Nasal Coronavir HKU1 PCR Nasal Coronavir NL63 PCR Nasal Coronavir OC43 PCR Nasal Enterovir/Rhinovir PCR Nasal Influenza B PCR Nasal Influenza A PCR Nasal Parainfluen 1 PCR Nasal Parainfluen 2 PCR Nasal Parainfluen 3 PCR Nasal Parainfluen 4 PCR Nasal RSV (PCR) Nasal B.pertussis DNA PCR Nasal C.pneumoniae (PCR) [place] Human Metapneumo PCR Nasal M.pneumoniae (PCR) Nasal SARS-CoV-2 (PCR) 03/03/22 03/03/22 03/03/22 16:29 16:29 16:49 WBC RBC Hgb Hct MCV MCH MCHC RDW Plt Count MPV Neut # (Auto) Lymph # (Auto) [place] # (Auto) Eos # (Auto) Baso # (Auto) Absolute Nucleated RBC Nucleated RBC % Manual Slide Review WBC Morphology Platelet Estimate Platelet Morphology RBC Morph Micro Appear Sodium Potassium Chloride Carbon Dioxide Anion Gap BUN Creatinine Estimated GFR (MDRD) Glucose Uric Acid Calcium Phosphorus Magnesium Total Bilirubin AST ALT Alkaline Phosphatase Lactate Dehydrogenase Total Protein Albumin Globulin Albumin/Globulin Ratio Urine Creatinine 25.4 25.9 Urine Microalbumin 2.3 Microalb/Creat Ratio 90.6 H Ur Total Protein Timed 8 Protein/Creatinin Ratio 0.3 H Nasal Adenovirus (PCR) NOT DETECTED Nasal B. parapertussis DNA (PCR) NOT DETECTED Nasal Coronavir 229E PCR NOT DETECTED Nasal Coronavir HKU1 PCR NOT DETECTED Nasal Coronavir NL63 PCR NOT DETECTED Nasal Coronavir OC43 PCR DETECTED A Nasal Enterovir/Rhinovir PCR NOT DETECTED Nasal Influenza B PCR NOT DETECTED Nasal Influenza A PCR NOT DETECTED Nasal Parainfluen 1 PCR NOT DETECTED Nasal Parainfluen 2 PCR NOT DETECTED Nasal Parainfluen 3 PCR NOT DETECTED Nasal Parainfluen 4 PCR NOT DETECTED Nasal RSV (PCR) NOT DETECTED Nasal B.pertussis DNA PCR NOT DETECTED Nasal C.pneumoniae (PCR) NOT DETECTED [place] Human Metapneumo PCR NOT DETECTED Nasal M.pneumoniae (PCR) NOT DETECTED Nasal SARS-CoV-2 (PCR) NOT DETECTED PD Medical Decision Making - ED course Complexity details: reviewed results, re-evaluated patient, d/w patient, d/w obiee consultant (Miguelina) ED course: 31-year-old female who is 5 days of a vaginal delivery presents to the emergency department for concerns of elevated blood pressures at home often up to 190. She did endorse a mild headache and some blurry vision. No vomiting chest pain or shortness of air. She does have some mild bilateral lower extremity pedal edema which has been present since delivery and unchanged. She had no right upper quadrant abdominal pain. The concern for presentation was that of preeclampsia or preeclampsia with severe features versus help syndrome. The patient was immediately attended to in the emergency department by on-call OB Dr. Mcintyre. We did obtain a CBC, electrolytes, LDH, urine creatinine/protein and reassuringly there were no worrisome findings seen, though the urine was a clean catch. As such she does not have preeclampsia but does present with post hypertension Here in the emergency department her systolic blood pressures were typically 130-140 over 60s. After careful discussion and consultation with Dr. Partida the decision was made to discharge the patient home with a prescription for Procardia XL. Her first dose was administered here in the emergency department. She does have very close follow-up with her quill collector. We also discussed the explicit return precautions for worsening symptoms, headache, right upper quadrant abdominal pain, chest pain and syncope. Departure - Departure Clinical Impression: hypertension Condition: Stable Record reviewed to determine appropriate education?: Yes Prescriptions: NIFEdipine [Procardia Xl] 30 mg PO DAILY #14 tablet Comments: Chelsie you are seen today in the emergency department because you have been checking your blood pressures at home and found that they were very elevated. Elevated blood pressures during and for the first few weeks after can be a sign of a condition called preeclampsia. Here in the emergency department your initial blood pressures were in the 150s though they decreased to the 130s. We did obtain a number of labs to ensure that you had not developed severe features of preeclampsia or help syndrome and reassuringly they are all essentially normal. In order to help manage your blood pressure we are starting you on medication called Procardia XL. You are to take it once a day. Your first dose was given in the ER and I would like you to fill the prescription tomorrow at [facility] and begin taking as directed. It is very important that you follow- up with your quill collector tomorrow for reevaluation. You will need a longer prescription for the Procardia. If at any point you develop worsening symptoms, have a headache, chest pain uncontrolled vomiting any fainting episodes you should return immediately to the ER.
[2022-03-03 16:58] LABS: BASOPHILS % (AUTO) 0.3 %; EOSINOPHILS # (AUTO) 0.2 10^3/uL (0.0-0.7); EOSINOPHILS % (AUTO) 2.1 %; HCT - HEMATOCRIT 32.5 % (37.0-47.0); HGB - HEMOGLOBIN 9.4 g/dL (12.0-16.0); LYMPHOCYTES # (AUTO) 1.3 10^3/uL (1.5-3.5); LYMPHOCYTES % (AUTO) 16.8 %; MEAN CORPUSCULAR HEMOGLOBIN 22.2 pg (27.0-31.0); MEAN CORPUSCULAR HGB CONC 28.9 g/dL (32.0-36.0); MEAN CORPUSCULAR VOLUME 76.7 fL (81.0-99.0); MEAN PLATELET VOLUME 9.2 fL (7.9-10.8); MONOCYTES # (AUTO) 0.4 10^3/uL (0.0-1.0); MONOCYTES % (AUTO) 5.3 %; NEUTROPHILS # (AUTO) 5.7 10^3/uL (1.5-6.6); NEUTROPHILS % (AUTO) 73.1 %; PLT - PLATELET COUNT 298 10^3/uL (130-450); RED BLOOD COUNT 4.24 10^6/uL (4.20-5.40); RED CELL DISTRIBUTION WIDTH 17.5 % (12.0-15.0); WHITE BLOOD COUNT 7.8 x10^3/uL (4.8-10.8)
[2022-03-03 17:01] LABS: SLIDE REVIEW? Indicated
[2022-03-03 17:07] LABS: ALBUMIN 2.9 g/dL (3.2-5.5); ALBUMIN/GLOBULIN RATIO 0.7 (1.0-2.2); BILIRUBIN,TOTAL 0.5 mg/dL (0.2-1.0); CALCIUM 9.3 mg/dL (8.5-10.3); CREATININE 0.6 mg/dL (0.4-1.0); MAGNESIUM 1.7 mg/dL (1.7-2.8); PHOSPHORUS 3.7 mg/dL (2.5-4.6); POTASSIUM 3.7 mmol/L (3.5-5.0); TOTAL PROTEIN 6.9 g/dL (6.7-8.2); URIC ACID 5.7 mg/dL (2.6-7.2)
[2022-03-03 17:10] LABS: CREATININE,URINE 25.4 mg/dL; MICROALBUM/CREATININE RATIO,UR 90.6 ug/mg (<30.0); MICROALBUMIN,URINE 2.3 mg/dL (0-300.0)
[2022-03-03 17:16] LABS: CREATININE,URINE 25.9 mg/dL; PROTEIN/CREATININE RATIO,URINE 0.3 (<=0.2)
[2022-03-03 17:27] LABS: PLATELET ESTIMATE, MANUAL NORMAL (130-450,000) (NORMAL); PLATELET MORPHOLOGY NORMAL APPEARANCE (NORMAL); WBC MORPHOLOGY (MULTIPLE) NORMAL APPEARANCE (NORMAL)
--- NOTE | 2022-03-03 17:37 | CONSULTATION NOTE ---
Referring Provider Consult Date: 03/03/22 History of Present Illness - History of Present Illness HPI Comment/Other: Patient is a 31 yo PPD#5 s/p . Patient had an uncomplicated and course. She was borrowing a relative's blood forearm blood pressure cuff and presented because blood pressures were elevated. She had a headache earlier in the day but does not have one now. Denies right upper quadrant pain. She has mild lower extremity edema which has been present since delivery. Patient's first was also uncomplicated. 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 ( x 2, SAB X2, TABx1) : reports: None Musculoskeletal: reports: None Derm: reports: None - Past Surgical History Ortho: reports: Other ("ankle screws" as a child) - Substance History Use: Uses substance without health or social issues: NONE Abuse: Recurrent use of substance despite neg consequences: NONE - POLST Patient has POLST: No Meds/Allgy - Home Medications Home Medications: Ambulatory Orders Medication Instructions Recorded Confirmed NIFEdipine [Procardia Xl] 30 mg PO DAILY #14 tablet 03/03/22 - Allergies Allergies/Adverse Reactions: Allergies Allergy/AdvReac Type Severity Reaction Status Date / Time isopropyl alcohol Allergy Rash Verified 03/27/20 08:27 Sulfa (Sulfonamide Allergy Itching Verified 03/16/20 07:12 Antibiotics) Latex, Natural Rubber AdvReac Itching Verified 03/15/20 21:30 Review of Systems - Cardiovascular Cariovascular: denies: Chest pain - Gastrointestinal Gastrointestinal: denies: Abdominal pain - Neurological Neurological: denies: Headache - All Other Systems All Other Systems: reports: Reviewed and negative Exam - Vital Signs Vital Signs: Vital Signs x48h Temp Pulse Resp BP Pulse Ox 03/03/22 17:23 136/83 H 03/03/22 16:55 67 17 138/94 H 97 03/03/22 16:16 98.6 F 72 20 152/86 H 99 - Physical Exam General Appearance: positive: No acute distress Eyes Bilateral: positive: Normal inspection Respiratory: positive: Breath sounds nml Cardiovascular: positive: Regular rate & rhythm Peripheral Pulses: positive: 2+ Abdomen: positive: Non-tender Skin: positive: Color nml Extremities: positive: Non-tender Neurologic/Psychiatric: positive: Oriented x3 Reflexes: Knee (R): 1+, Knee (L): 1+ (no clonus) Conclusion/Plan - Lab Results Fish Bones: 03/03/22 16:29 03/03/22 16:29 - Other Other Results/Comments: hypertension 1. labwork normal, urine was not straight cath, patient with moderate lochia 2. start procardia xl 30 mg PO daily 3. discussed signs/symptoms of pre-eclampsia with patient. Advised patient to return for a headache no relieved with tylenol, right upper quadrant pain, changes in vision, or any other concerns. Patient has close follow-up with Shreya Abad CNM. Patient verbalized understanding and all questions answered.
[2022-03-03] MEDS ORDERED: NIFEdipine ER 30 MG TABLET PO STA (18:00)
[2022-03-03 18:09] LABS: CORONAVIRUS 229E-RESP PCR NOT DETECTED; CORONAVIRUS HKU1-RESP PCR NOT DETECTED; CORONAVIRUS NL63-RESP PCR NOT DETECTED; CORONAVIRUS OC43-RESP PCR DETECTED; HUMAN METAPNEUMOVIRUS NOT DETECTED; INFLUENZA A- RESP PCR PANEL NOT DETECTED; RHINOVIRUS/ENTEROVIRUS NOT DETECTED; SARS-CoV-2 -RESP PCR PANEL NOT DETECTED
[2022-03-03 18:10] LABS: B. PARAPERTUSSIS- RESP PCR PAN NOT DETECTED; B. PERTUSSIS- RESP PCR PANEL NOT DETECTED; C. PNEUMONIAE- RESP PCR PANEL NOT DETECTED; INFLUENZA B - RESP PCR PANEL NOT DETECTED; M. PNEUMONIAE- RESP PCR PANEL NOT DETECTED; PARAINFLUENZA VIRUS 1 NOT DETECTED; PARAINFLUENZA VIRUS 2 NOT DETECTED; PARAINFLUENZA VIRUS 3 NOT DETECTED; PARAINFLUENZA VIRUS 4 NOT DETECTED; RSV- RESP PCR PANEL NOT DETECTED
[2022-03-03 18:30] VITALS: BP 140/84
[2022-03-04] MEDS ORDERED: NIFEdipine ER 30 MG TABLET PO SCH (09:00)
== END 2022-03-03 18:41 | disposition home or self-care (01) ==
LOC: ED 16:00
DX: O16.5 Unspecified maternal hypertension, complicating the puerperium (principal); Z20.822 Contact with and (suspected) exposure to COVID-19
CPT/HCPCS: 36415; 80053; 82043; 82570; 83615; 83735; 84100; 84156; 84550; 85025; 87633; 99283; 99284; A9270

== ENCOUNTER 2022-04-29 09:47 | Emergency (ER) | payer OTHER ==
[2022-04-29 10:37] LABS: BASOPHILS # (AUTO) 0.1 10^3/uL (0.0-0.1); BASOPHILS % (AUTO) 0.8 %; EOSINOPHILS # (AUTO) 0.3 10^3/uL (0.0-0.7); EOSINOPHILS % (AUTO) 4.5 %; HCT - HEMATOCRIT 37.3 % (37.0-47.0); HGB - HEMOGLOBIN 11.7 g/dL (12.0-16.0); LYMPHOCYTES # (AUTO) 1.7 10^3/uL (1.5-3.5); LYMPHOCYTES % (AUTO) 26.8 %; MEAN CORPUSCULAR HEMOGLOBIN 24.1 pg (27.0-31.0); MEAN CORPUSCULAR HGB CONC 31.4 g/dL (32.0-36.0); MEAN CORPUSCULAR VOLUME 76.9 fL (81.0-99.0); MEAN PLATELET VOLUME 8.7 fL (7.9-10.8); MONOCYTES # (AUTO) 0.3 10^3/uL (0.0-1.0); MONOCYTES % (AUTO) 4.7 %; NEUTROPHILS # (AUTO) 3.9 10^3/uL (1.5-6.6); NEUTROPHILS % (AUTO) 62.2 %; PLT - PLATELET COUNT 319 10^3/uL (130-450); RED BLOOD COUNT 4.85 10^6/uL (4.20-5.40); RED CELL DISTRIBUTION WIDTH 14.7 % (12.0-15.0); WHITE BLOOD COUNT 6.2 x10^3/uL (4.8-10.8)
--- NOTE | 2022-04-29 10:46 | XRAY Report ---
PROCEDURE: Chest 1 View X-Ray INDICATIONS: Chest pain TECHNIQUE: One view of the chest was acquired. COMPARISON: None. FINDINGS: Surgical changes and devices: None. Lungs and pleura: No pleural effusions or pneumothorax. Lungs are clear. Mediastinum: Mediastinal contours appear normal. Heart size is normal. Bones and chest wall: No suspicious bony lesions. Overlying soft tissues appear unremarkable. IMPRESSION: No acute pulmonary process. Reviewed by: Moira Rubio MD on 04/29/2022 10:45 AM [facility] Approved by: Moira Rubio MD on 04/29/2022 10:45 AM [facility] Station ID: [id number]
[2022-04-29 10:51] LABS: ALBUMIN 3.4 g/dL (3.2-5.5); ALBUMIN/GLOBULIN RATIO 1.1 (1.0-2.2); BILIRUBIN,TOTAL 0.6 mg/dL (0.2-1.0); CALCIUM 9.4 mg/dL (8.5-10.3); CREATININE 0.8 mg/dL (0.4-1.0); POTASSIUM 3.5 mmol/L (3.5-5.0); TOTAL PROTEIN 6.5 g/dL (6.7-8.2)
--- NOTE | 2022-04-29 11:13 | ED Physician Documentation ---
History of Present Illness - Stated complaint Stated Complaint: CHEST PX,NAUSEA - Chief complaint Chief Complaint: Cardiac - History obtained from History obtained from: Patient - History of Present Illness Timing: Today Pain level max: 7 Pain level now: 1 - Additonal information Additional information: Patient is a 31-year-old female approximately 2 months . She states that this morning around 5:30 in the morning she woke up with epigastric and right upper quadrant abdominal pain. Nothing made it better or worse. She states the symptoms have now mostly resolved. She did have hypertension after and was on medication x1 month, but is no longer on medication. No nausea or vomiting. No difficulty breathing. Has never had issues with her gallbladder that she is aware of. She had a vaginal delivery. 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 ( x 2, SAB X2, TABx1) : None Musculoskeletal: None Derm: None - Past Surgical History Ortho: Other ("ankle screws" as a child) - Present Medications Home Medications: Ambulatory Orders Medication Instructions Recorded Confirmed NIFEdipine [Procardia Xl] 30 mg PO DAILY #14 tablet 03/03/22 - Allergies Allergies/Adverse Reactions: Allergies Allergy/AdvReac Type Severity Reaction Status Date / Time isopropyl alcohol Allergy Rash Verified 04/29/22 10:03 Sulfa (Sulfonamide Allergy Itching Verified 04/29/22 10:03 Antibiotics) Latex, Natural Rubber AdvReac Itching Verified 04/29/22 10:03 - Social History Does the pt smoke?: No Smoking Status: Never smoker Does the pt drink ETOH?: No Does the pt have substance abuse?: No - Immunizations Immunizations are current?: Yes - POLST Patient has POLST: No PD ED PE NORMAL - Vitals Vital signs reviewed: Yes - General General: Alert and oriented X 3, No acute distress, Well developed/nourished - HEENT HEENT: PERRL, Moist mucous membranes - Neck Neck: Supple, no meningeal sign - Cardiac Cardiac: RRR, Strong equal pulses - Respiratory Respiratory: No respiratory distress, Clear bilaterally - Abdomen Abdomen: Soft, Non distended, Other (Tender to palpation right upper quadrant. No peritoneal signs. Equivocal [place]re[place]) - Back Back: No CVA TTP, No spinal TTP - Derm Derm: Warm and dry - Extremities Extremities: No edema, No calf tenderness / cord - Neuro Neuro: Alert and oriented X 3 - Psych Psych: Normal mood, Normal affect Results - Vitals Vitals: Vital Signs - 24 hr 04/29/22 04/29/22 04/29/22 09:58 11:19 11:38 Temperature 36.8 C Heart Rate 56 L 52 L 52 L Respiratory 16 20 18 Rate Blood Pressure 128/73 124/63 119/83 H O2 Saturation 99 98 100 04/29/22 04/29/22 04/29/22 12:09 12:32 13:13 Temperature Heart Rate 53 L 46 L 54 L Respiratory 18 20 20 Rate Blood Pressure 119/81 H 123/86 H O2 Saturation 97 100 100 Oxygen O2 Source Room air - EKG (time done) 1008 Rate: Rate (enter#) (60) Rhythm: NSR [place]: Normal Intervals: Normal UT QRS: Normal Ischemia: Normal ST segments - Labs Labs: Laboratory Tests 04/29/22 04/29/22 04/29/22 10:32 10:32 10:32 WBC 6.2 RBC 4.85 Hgb 11.7 L Hct 37.3 MCV 76.9 L MCH 24.1 L MCHC 31.4 L RDW 14.7 Plt Count 319 MPV 8.7 Neut # (Auto) 3.9 Lymph # (Auto) 1.7 [place] # (Auto) 0.3 Eos # (Auto) 0.3 Baso # (Auto) 0.1 Absolute Nucleated RBC 0.00 Nucleated RBC % 0.0 Sodium 145 Potassium 3.5 Chloride 111 Carbon Dioxide 28 Anion Gap 6.0 BUN 9 Creatinine 0.8 Estimated GFR (MDRD) 84 L Glucose 94 Calcium 9.4 Total Bilirubin 0.6 AST 35 ALT 42 Alkaline Phosphatase 88 Troponin I High Sens 3.6 Total Protein 6.5 L Albumin 3.4 Globulin 3.1 Albumin/Globulin Ratio 1.1 Lipase 62 H - Rads (name of study) cxr Radiology: Final report received, See rad report RUQ US Radiology: Final report received, See rad report PD Medical Decision Making - ED course Complexity details: reviewed results, re-evaluated patient, considered differential, d/w patient ED course: 31-year-old female with what appears to be biliary colic. No acute findings on laboratory testing. No acute findings on EKG, chest x-ray. Her right upper quadrant ultrasound shows Cholelithiasis without cholecystitis. Pain resolved in the emergency department. Counseled regarding elective cholecystectomy No fevers. No chills. No vomiting. Abdomen is soft, nontender nondistended on serial exam. Counseled regarding low-fat diet. Patient counseled regarding signs and symptoms for which I believe and urgent re-evaluation would be necessary. Patient with good understanding of and agreement to plan and is comfortable going home at this time This document was made in part using voice recognition software. While efforts are made to proofread this document, sound alike and grammatical errors may occur. IMPRESSION: Cholelithiasis without imaging evidence of cholecystitis. Departure - Departure Disposition: 01 Home, Self Care Clinical Impression: Biliary colic Condition: Good Instructions: ED Gallstone W Biliary Colic Follow-Up: Surgical Care [Provider Group] Teofilo Moeller MD [Provider Admit Priv/Credential] - Comments: Please follow-up with your doctor for further care. You have a gallstone in your gallbladder today. Your symptoms are consistent with what Biliary colic. I would recommend that you meet with a surgeon to discuss having an elective cholecystectomy, removal of your gallbladder. Please follow a very low-fat diet. Please return for worsening pain, vomiting, fevers or other new or worrisome symptoms. Discharge Date/Time: 04/29/22 13:16
[2022-04-29 12:33] VITALS: BP 123/86
--- NOTE | 2022-04-29 13:10 | Ultrasound Report ---
PROCEDURE: Abdomen Limited INDICATIONS: RUQ abd pain TECHNIQUE: Real-time focused scanning was performed of the abdomen, with image documentation. COMPARISON: None FINDINGS: Liver is enlarged measuring 18 cm with diffuse steatosis. A focus of echogenicity is noted within the gallbladder measuring 9 mm. Wall thickness is normal measuring 2.7 mm. Common bile duct m easures 5 mm. Right kidney measures 11 cm. IMPRESSION: Cholelithiasis without imaging evidence of cholecystitis. Reviewed by: Moira Rubio MD on 04/29/2022 1:09 PM PST Approved by: Moira Rubio MD on 04/29/2022 1:09 PM [facility] Station ID: [id number]
== END 2022-04-29 13:16 | disposition home or self-care (01) ==
LOC: ED 09:47
DX: K80.50 Calculus of bile duct without cholangitis or cholecystitis without obstruction (principal)
CPT/HCPCS: 36415; 80053; 83690; 84484; 85025; 93005; 99283; 99284

== ENCOUNTER 2022-08-13 20:18 | Outpatient (CLI) | payer OTHER ==
--- NOTE | 2022-08-14 16:53 | XRAY Report ---
PROCEDURE: Pelvis 1 View INDICATIONS: LOW BACK PAIN, UNSPECIFIED TECHNIQUE: 1 view(s) of the pelvis acquired. COMPARISON: X-ray sacrum 08/13/2022 FINDINGS: Bones: No fractures or dislocations. No suspicious bony lesions. Soft tissues: Visualized bowel gas pattern is normal. No suspicious soft tissue calcifications. IMPRESSION: No visualized acute fracture or dislocation. However, occult injury cannot be excluded. Recommend paula rt interval imaging follow-up in 7-10 days as clinically indicated for additional evaluation. Reviewed by: Moira Rubio MD on 08/14/2022 4:52 PM PDT Approved by: Moira Rubio MD on 08/14/2022 4:52 PM PDT Station ID: [id number]
--- NOTE | 2022-08-14 16:54 | XRAY Report ---
PROCEDURE: Sacrum/Coccyx INDICATIONS: LOW BACK PAIN, UNSPECIFIED TECHNIQUE: 3 views of the sacrum and coccyx acquired. COMPARISON: X-ray pelvis 08/13/2022 FINDINGS: Bones: No fractures or dislocations. No suspicious bony lesions. Soft tissues: Visualized bowel gas pattern is normal. No suspicious soft tissue densities. IMPRESSION: No visualized acute fracture or dislocation. However, occult injury cannot be excluded. Recommend paula rt interval imaging follow-up in 7-10 days as clinically indicated for additional evaluation. Reviewed by: Moira Rubio MD on 08/14/2022 4:52 PM PDT Approved by: Moira Rubio MD on 08/14/2022 4:52 PM PDT Station ID: [id number]
== END 2022-08-13 20:19 | disposition home or self-care (01) ==
LOC: DI 20:18
PROVIDERS: ATTEND Physician Assistant
DX: M54.50 Low back pain, unspecified (principal)

== ENCOUNTER 2022-08-29 07:17 | Outpatient (CLI) | payer OTHER ==
[2022-08-29 12:05] LABS: ALBUMIN/GLOBULIN RATIO 1.2 (1.0-2.2); BILIRUBIN,TOTAL 0.6 mg/dL (0.2-1.0); CALCIUM 9.7 mg/dL (8.5-10.3); CREATININE 0.8 mg/dL (0.4-1.0); POTASSIUM 4.2 mmol/L (3.5-5.0); TOTAL PROTEIN 7.4 g/dL (6.7-8.2)
[2022-08-29 12:08] LABS: BASOPHILS # (AUTO) 0.1 10^3/uL (0.0-0.1); BASOPHILS % (AUTO) 0.9 %; EOSINOPHILS # (AUTO) 0.3 10^3/uL (0.0-0.7); HCT - HEMATOCRIT 41.2 % (37.0-47.0); HGB - HEMOGLOBIN 13.3 g/dL (12.0-16.0); LYMPHOCYTES # (AUTO) 1.7 10^3/uL (1.5-3.5); LYMPHOCYTES % (AUTO) 26.4 %; MEAN CORPUSCULAR HGB CONC 32.3 g/dL (32.0-36.0); MEAN CORPUSCULAR VOLUME 80.6 fL (81.0-99.0); MEAN PLATELET VOLUME 9.6 fL (7.9-10.8); MONOCYTES # (AUTO) 0.4 10^3/uL (0.0-1.0); MONOCYTES % (AUTO) 6.4 %; NEUTROPHILS # (AUTO) 4.1 10^3/uL (1.5-6.6); NEUTROPHILS % (AUTO) 61.8 %; PLT - PLATELET COUNT 275 10^3/uL (130-450); RED BLOOD COUNT 5.11 10^6/uL (4.20-5.40); RED CELL DISTRIBUTION WIDTH 14.1 % (12.0-15.0); WHITE BLOOD COUNT 6.6 x10^3/uL (4.8-10.8)
[2022-08-29 12:32] LABS: THYROID STIMULATING HORMONE 3.37 uIU/mL (0.34-5.60)
== END 2022-08-29 07:18 | disposition home or self-care (01) ==
LOC: LAB.N 07:17
PROVIDERS: ATTEND Surgery
DX: Z01.812 Encounter for preprocedural laboratory examination (principal); K80.20 Calculus of gallbladder without cholecystitis without obstruction; R10.11 Right upper quadrant pain; Z79.899 Other long term (current) drug therapy; F31.81 Bipolar II disorder; F41.1 Generalized anxiety disorder
CPT/HCPCS: 36415; 80053; 84443; 85025

== ENCOUNTER 2022-08-30 06:18 | Day surgery (SDC) | payer OTHER ==
[2022-08-30] MEDS ORDERED: ceFAZolin 2 GM VIAL ONE (06:21)
[2022-08-30 06:38] LABS: HCG UR QUAL NEGATIVE
[2022-08-30] MEDS ORDERED: LACTATED RINGERS 1,000 ML IV ONE ×2 (06:46→09:26)
[2022-08-30] MEDS ORDERED: MIDAZOLAM 2 MG/2 ML VIAL ONE (06:52)
[2022-08-30] MEDS ORDERED: fentaNYL 100 MCG/2 ML VIAL ONE ×2 (06:52→08:30)
[2022-08-30] MEDS ORDERED: PROPOFOL 200 MG/20 ML VIAL IVP ONE (06:53)
[2022-08-30] MEDS ORDERED: ROCURONIUM 50 MG/5 ML VIAL ONE ×2 (06:53→08:45)
[2022-08-30] MEDS ORDERED: LIDOCAINE-PF 2% 10 ML AMP SUBQ ONE (06:53)
[2022-08-30] MEDS ORDERED: SEVOFLURANE 250 ML LIQUID INH ONE (06:59)
[2022-08-30] MEDS ORDERED: HYDROmorphone 0.5 MG/0.5 ML SYRINGE IVP PRN ×2 (07:06→09:32)
[2022-08-30] MEDS ORDERED: ATROPINE ABBOJECT 1 MG/10 ML SYRINGE IVP PRN (07:06)
[2022-08-30] MEDS ORDERED: MORPHINE 2 MG/ML CARPUJECT IVP PRN (07:06)
[2022-08-30] MEDS ORDERED: ONDANSETRON 4 MG/2 ML VIAL IVP PRN ×2 (07:06→09:32)
[2022-08-30] MEDS ORDERED: METOCLOPRAMIDE 10 MG/2 ML VIAL IVP PRN (07:06)
[2022-08-30] MEDS ORDERED: ePHEDrine 50 MG/ML VIAL IVP PRN (07:06)
[2022-08-30] MEDS ORDERED: NALOXONE 0.4 MG/ML VIAL IVP PRN (07:06)
[2022-08-30] MEDS ORDERED: fentaNYL 100 MCG/2 ML VIAL IVP PRN (07:06)
--- NOTE | 2022-08-30 07:06 | ANESTHESIA ---
Pre-Anesthesia VS, & Labs - Diagnosis cholelithiasis, abd pain - Procedure laparoscopic cholecystectomy Vital Signs: Temp Pulse Resp BP Pulse Ox O2 Flow Rate 36.0 C L 87 15 114/74 97 0 08/30/22 06:46 08/30/22 06:46 08/30/22 06:46 08/30/22 06:46 08/30/22 06:46 08/30/22 06:46 Height: 5 ft 9 in Weight (kg): 92.5 kg Body Mass Index: 30.1 BMI Classification: Obese - NPO >8 hours - Is Patient ?: No - Lab Results Lab results reviewed: Yes Home Medications and Allergies Home Medications: Ambulatory Orders Sertraline [Zoloft] 1 tab PO DAILY 08/30/22 Sertraline [Zoloft] 1 tab PO DAILY 08/30/22 Allergies/Adverse Reactions: Allergies Allergy/AdvReac Type Severity Reaction Status Date / Time isopropyl alcohol Allergy Rash Verified 04/29/22 10:03 Sulfa (Sulfonamide Allergy Itching Verified 04/29/22 10:03 Antibiotics) Latex, Natural Rubber AdvReac Mild Itching Verified 08/30/22 06:52 Anes History & Medical History - Anesthetic History Anesthesia Complications: reports: No previous complications Family history of Anesthesia Complications: Denies Family history of Malignant Hyperthermia: Denies - Medical History Cardiovascular: reports: None Pulmonary: reports: None Gastrointestinal: reports: None Urinary: reports: None Neuro: reports: None Musculoskeletal: reports: None Endocrine/Autoimmune: reports: None Blood Disorders: reports: None Skin: reports: None Smoking Status: Never smoker - Surgical History Orthopedic: reports: Other Exam General: Alert, Oriented x3, Cooperative Dental: WNL Mouth Openin Fingerbreadth Neck Mobility: Normal Mallampati classification: II Thyromental Distance: 4-6 cm Respiratory: Lungs clear, Normal breath sounds, No respiratory distress Cardiovascular: Regular rate Neurological: Normal speech Mental/Cognitive Status: Alert/Oriented X3, Normal for patient Cognitive Status: Within normal limits Plan Anesthesia Type: General Consent for Procedure(s) Verified and Reviewed: Yes Code Status: Attempt Resuscitation ASA classification: 2-Mild systemic disease Is this case an emergency?: No
[2022-08-30] MEDS ORDERED: BUPIVACAINE 0.5%-EPI 1:200000 PF 30 ML VIAL ONE (07:11)
[2022-08-30] MEDS ORDERED: LACTATED RINGERS 1,000 ML IV SCH (08:00)
[2022-08-30] MEDS ORDERED: ONDANSETRON 4 MG/2 ML VIAL ONE ×2 (08:03→09:55)
[2022-08-30] MEDS ORDERED: DEXAMETHASONE 4 MG/ML VIAL ONE (08:03)
[2022-08-30] MEDS ORDERED: PHENYLEPHRINE 10 MG/ML VIAL ONE (08:11)
[2022-08-30] MEDS ORDERED: BUPIVACAINE 0.5%-EPI 1:200000 PF 30 ML VIAL SUBQ ONE (08:29)
[2022-08-30] MEDS ORDERED: SUGAMMADEX 200 MG/2 ML VIAL IVP ONE (09:01)
[2022-08-30] MEDS ORDERED: KETOROLAC 30 MG/ML VIAL ONE (09:08)
--- NOTE | 2022-08-30 09:24 | OPERATIVE REPORT ---
Operative Report - General Procedure Date: 08/30/22 Planned Procedure: Laparoscopic cholecystectomy Pre-Op Diagnosis: Biliary colicsymptomatic cholelithiasis Procedure Performed: Laparoscopic cholecystectomy and umbilical herniorrhaphy Post Op Diagnosis: Symptomatic cholelithiasis and umbilical hernia (small - less than 3 cm) - Procedure Note Primary Surgeon: eTofilo Moeller MD Anesthesia Provider: Jean Marie Canales CRNA Anesthesia Technique: General ET tube, Local (30 mL of half percent Marcaine with epinephrine) IV Fluids (mL): 1,000 Estimated Blood Loss (mL): 10 Drain/Tube Type: Other (None.) Findings: Gallbladder with stones with multiple adhesions to it. Complications: None. - Other Other Information/Narrative: After verbal and written informed consent was obtained detailing the operation, the alternatives to the operation including no operation, risks of infection, bleeding requiring transfusion with its risks, nerve injury, and and after I met with the patient confirming the surgery, the patient was brought to the operative suite and placed supine on the operating table. Great care was taken to avoid pressure points to prevent pressure necrosis or nerve injury. Monitoring devices were applied along with TEDs and pneumatic compressive stockings (to prevent DVT). The patient received preoperative antibiotics for surgical prophylaxis. Jean Marie Canales CRNA sedated and anesthetized the patient for the entire procedure. The patient was prepped and draped in usual sterile manner. A "time in" then confirmed that the patient was identified with 3 identifiers (name, date, and medical record number), the history and physical was in the chart, the signed consent confirming the procedure was in the chart, the patient was in the correct position, the aforementioned prophylactic measures were in place were given, we had the correct personnel and equipment to complete the procedure and that anesthesia, and the surgical team was given an opportunity to express any concerns. With the agreement of everyone in the room, we proceeded with the operation. The initial incision was infraumbilical due to her piercing and dissection to the incidentally found umbilical hernia was completed using sharp and blunt dissection. The hernia sac was dissected off of the posterior skin of the umbilicus sharply. This was incised gaining entry into the abdomen. Through the fascial defect was placed a 12 mm blunt tipped, balloon tipped port was placed and the balloon was inflated to keep the port in position. The abdominal cavity was insufflated with carbon dioxide to a steady-state pressure of 12 mmHg. 3 additional 5 mm ports were placed in standard locations for laparoscopic cholecystectomy (subxiphoid and 2 right subcostal) under direct vision of the 30 degree laparoscope and without incident. The patient was then placed in reverse Trendelenburg position and was rotated slightly to their left. The gallbladder fundus was grasped with an atraumatic grasper. Multiple adhesions had to be taken down by blunt and sharp dissection along with electrocautery. Eventually, I identified the infundibulum and this was then g rasped and retracted superiorly and laterally. Dissection was then begun at the angle of Calot. The cystic duct and (slightly medially and posteriorly), cystic artery were clearly identified. The critical view was obtained and a photograph taken. 2 clips proximally and one clip distally were used to control both the cystic duct and cystic artery. The clips were carefully placed to avoid occlu ding the juncture with the common bile duct. Both the cystic duct and then the cystic artery were then transected with laparoscopic romy. The gallbladder was then removed from its fossa in a retrograde manner using electrocautery. With the 30 degree 5 mm scope in the subxiphoid position, the gallbladder was placed in an Endo Catch bag to be extracted through the 12 mm port site. I irrigated the right upper quadrant with liter of warm sterile saline and the area was aspirated dry. I inspected the gallbladder fossa and there was no bleeding or bile leak. Clips on the cystic duct and cystic artery appeared to be secure. I briefly visually explored the abdomen. There was no other evidence of overt pathology. I injected the port sites at the peritoneal, fascial, and skin levels under direct vision with 0.5% Marcaine. All ports and the Endo Catch containing the gallbladder were removed. Following gallbladder removal, the remaining carbon dioxide was expelled from the abdomen. The fascia the umbilicus was approximated using 2 [id number] 0 Vicryl sutures thus repairing the umbilical hernia. The posterior aspect of the umbilicus was then sewn down to the fascia using a 4-0 Monocryl thus giving the patient a "innie." The skin at each port site was approximated using a subcuticular 4-0 Monocryl. The skin was prepped with benzoin and Steri-Strips were applied. At this point a "timeout" was performed that confirmed that all counts were correct, the procedure that was performed, the blood loss, the IV fluids administered, the patient's condition and any concerns of the operating team had. Dressings were then applied. Having tolerated the procedure well, the patient was extubated and taken to recovery room in good and stable condition. The plan is for outpatient discharge when the patient is adequately recovered. This document was created in part using voice recognition technology. Because of the inherent limitations of the system, occasional same sounding word substitutions and grammatical errors do occur and persist despite proofreading. Please read this document for context. CPT 09101 (laparoscopic cholecystectomy) CPT 58440 (umbilical herniorrhaphy less than 3 cm in size)
[2022-08-30] MEDS ORDERED: HYDROcod/ACETAM 5/325 MG TABLET PO PRN (09:32)
[2022-08-30] MEDS ORDERED: ACETAMINOPHEN 1,000 MG/100 ML 1,000 MG/100 ML BAG IV ONE ×2 (10:10→10:11)
--- NOTE | 2022-08-30 10:17 | ANESTHESIA POST OP EVALUATION ---
Anesthesia Post Eval - Post Anesthesia Eval Vitals: Last Vital Signs Temp 37.2 C 08/30/22 10:01 Pulse 83 08/30/22 10:09 Resp 13 08/30/22 10:09 BP 130/76 08/30/22 10:09 Pulse Ox 95 08/30/22 10:09 O2 Flow Rate 0 08/30/22 06:46 CV Function Including HR & BP: Stable Pain Control: Satisfactory, Additional Therapies Ordered (IV tylenol ordered for PACU) Nausea & Vomiting: Negative Mental Status: Baseline Respiratory Status: Airway Patent Hydration Status: Satisfactory Anesthesia Complications: None
[2022-08-30] MEDS ORDERED: HYDROmorphone 0.5 MG/0.5 ML SYRINGE ONE (10:30)
[2022-08-30] MEDS ORDERED: HYDROcod/ACETAM 5/325 MG TABLET ONE (11:23)
[2022-08-30 11:26] VITALS: BP 128/76
== END 2022-08-30 06:19 | disposition home or self-care (01) ==
LOC: SDS 06:18
PROVIDERS: ATTEND Surgery
PROC: 0FT44ZZ Resection of Gallbladder, Percutaneous Endoscopic Approach (ICD-10-PCS; principal; 2022-08-30 07:30)
DX: K80.20 Calculus of gallbladder without cholecystitis without obstruction (principal); K42.9 Umbilical hernia without obstruction or gangrene; E66.9 Obesity, unspecified; Z68.30 Body mass index [BMI] 30.0-30.9, adult
CPT/HCPCS: 47562; 81025; A9270; J0131; J1170; J3490; J7120

== ENCOUNTER 2022-12-22 16:50 | Emergency (ER) | payer OTHER ==
[2022-12-22 17:05] VITALS: BP 127/66; O2SAT 100
--- NOTE | 2022-12-22 18:10 | Ultrasound Report ---
PROCEDURE: OB First Trimester w/TV INDICATIONS: cramping, told possible ectopic on last US OUTSIDE/PRIOR DATING DATA: Last menstrual period (LMP): 10/29/2022. LMP-based estimated date of delivery (SHARYN): 08/05/2023. First dating scan (date and location): 12/22/2022. Estimated date of delivery (SHARYN) from first dating scan: Not obtained. TECHNIQUE: Real-time scanning was performed of the fetus and maternal pelvic organs, with image documentation. Endovaginal scanning was also performed to better visualize the fetus and maternal ovaries. COMPARISON: None. FINDINGS: Irregular morphology of the gestational sac with a mean sac diameter of 0.75 cm. No pole is identified. Yolk sac is not identified. No heart rate is measured. Mean gestational sac diame ter is consistent with 5 weeks, 4 days. Other: No perigestational fluid collection. Measurement variability in dating: +/- 4 weeks by LMP, +/- 7 days by mean sac diameter (use before 6 weeks gestation if crown-rump length not able to be measured), +/- 5 days by crown-rump length (6-12 weeks gestation). Maternal organs: Ovaries appear within normal limits. Left corpus luteal cyst. IMPRESSION: Early intrauterine of unknown viability. Reviewed by: Sharan Fu MD on 12/22/2022 5:09 PM [facility] Approved by: Sharan Fu MD on 12/22/2022 5:09 PM [facility] Station ID: [id number]
--- NOTE | 2022-12-22 19:17 | ED Physician Documentation ---
PD HPI FEMALE - Stated complaint Stated Complaint: CRAMPING,PELVIC PX - Chief complaint Chief Complaint: Abd Pain - History obtained from History obtained from: Patient - Additional information Additional information: G6, P2 with history of 2 miscarriages and 1 in the past with LMP about October 29 has had cramping in without bleeding. She went to a care clinic 3 days ago and had per her a nondiagnostic ultrasound with likely a sac. Was advised to come to the emergency department if she had other symptoms. No beta-hCG was done at that time. 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 ( x 2, SAB X2, TABx1) : None HEENT: Chronic vision loss Psych: Depression, Anxiety, Bipolar disorder, Panic attacks Musculoskeletal: None Derm: None - Past Surgical History Ortho: Other - Present Medications Home Medications: Ambulatory Orders Medication Instructions Recorded Confirmed Docusate Sodium 250Mg Capsule 250 mg PO DAILY #10 cap 08/30/22 [Colace 250Mg Capsule] HYDROcod/ACETAM 5/325 [Descanso 5/325] 1 each PO Q4H PRN #12 tablet 08/30/22 Ondansetron Odt [Zofran Odt] 4 mg TL Q6H PRN #10 tablet 08/30/22 Sertraline [Zoloft] 1 tab PO DAILY 08/30/22 08/30/22 - Allergies Allergies/Adverse Reactions: Allergies Allergy/AdvReac Type Severity Reaction Status Date / Time isopropyl alcohol Allergy Rash Verified 12/22/22 17:06 Sulfa (Sulfonamide Allergy Itching Verified 12/22/22 17:06 Antibiotics) Latex, Natural Rubber AdvReac Mild Itching Verified 12/22/22 17:06 - Social History Does the pt smoke?: No Smoking Status: Never smoker Does the pt drink ETOH?: No Does the pt have substance abuse?: No - Immunizations Immunizations are current?: Yes - POLST Patient has POLST: No PD ED PE NORMAL - Vitals Vital signs reviewed: Yes - General General: Alert and oriented X 3, No acute distress - Neuro Neuro: Alert and oriented X 3, Normal speech - Psych Psych: Normal mood, Normal affect Results - Vitals Vitals: Vital Signs - 24 hr 12/22/22 16:58 Temperature 36.7 C Heart Rate 92 Respiratory 16 Rate Blood Pressure 127/66 O2 Saturation 100 Oxygen O2 Source Room air - Labs Labs: Laboratory Tests 12/22/22 17:57 Beta HCG, Quant 34972.6 - Rads (name of study) Pelvic ultrasound with irregular gestational sac consistent with 5 weeks 4 days. Relevant Findings:: Final report received PD Medical Decision Making - ED course ED course: Beta-hCG level 53175, pretty low for this point in as she would be 8 weeks tomorrow. Her ultrasound is not reassuring, not sure it is yet quite diagnostic of failure and repeat beta-hCG in 2 days and ultrasound in 1 week was advised. Departure - Departure Disposition: Home, Self Care Clinical Impression: Threatened affecting intrauterine Condition: Good Record reviewed to determine appropriate education?: Yes Instructions: ED Miscarriage Poss Follow-Up: Shreya Abad CNM, [facility] [Provider Admit Priv/Credential] - [place] [address]. We would expect it to be higher at this point in and the ultrasound is more consistent with a 5 weeks gestation then the expected dates. Recommend you follow-up with Shreya Abad on Friday for consideration of repeat beta-hCG and repeat ultrasonography in 1 week. Return i f worse. Forms: PCP List Discharge Date/Time: 12/22/22 19:19
== END 2022-12-22 19:19 | disposition home or self-care (01) ==
LOC: ED 16:50
DX: O20.0 Threatened abortion (principal)
CPT/HCPCS: 36415; 84702; 99283; 99284

== ENCOUNTER 2023-04-07 10:57 | Outpatient (CLI) | payer MEDICAID, OTHER ==
--- NOTE | 2023-04-07 16:01 | Ultrasound Report ---
PROCEDURE: OB Anatomy Scan INDICATIONS: SUPERVISION OF OUTSIDE/PRIOR DATING DATA: Last menstrual period (LMP): 10/29/2022. LMP-based estimated date of delivery (SHARYN): 08/05/2023. First dating scan (date and location): 12/02/2022. Estimated date of delivery (SHARYN) from first dating scan: 08/24/2023. TECHNIQUE: Real-time scanning was performed of the fetus, with image documentation and biometric measurements. Endovaginal scanning: Not performed. COMPARISON: 12/22/2022 FINDINGS: General: A single living intrauterine gestation is present. Presentation: Breech Placenta: Placental position is posterior, without previa. Amniotic fluid index: 11.8 cm, within normal limits for gestational age. heart rate: 138 beats per minute. Maternal cervical canal: Closed and 3.5 cm long; normal length is 2.5 cm or more. biometrics: Biparietal diameter: 4.5 cm, 19 weeks 4 days, 27th percentile Head circumference: 17.3 cm, 19 weeks 6 days, 29th percentile Abdominal circumference: 15.9 cm, 21 weeks 0 days, 74th percentile Femur length: 3.4 cm, 20 weeks 6 days, 67th percentile Estimated gestational age from initial scan: 20 weeks 1 day Composite gestational age from present scan: 20 weeks 1 day Estimated weight and percentile: 379 g, 82nd percentile Measurement variability in biometric dating: +/- 10 days from 12-20 weeks gestation, +/- 2 weeks from 20-30 weeks gestation, +/- 3 weeks at 30 weeks gestation or later. Anatomic survey: Neuro: Ventricles are normal at less than 10 mm. Cisterna magna is normal at 3-11 mm. Cerebellum i s normal in size and morphology. Nuchal skin fold: Normal at less than 6 mm between 14 and 20 weeks gestational age. Face: Nose and lips, facial profile are normal. Spine: No evidence for spina bifida. Heart: Heart was not well seen due to maternal body habitus. Diaphragm: Diaphragm is intact. Stomach: Left-sided stomach is present. Kidneys: No hydronephrosis. Normal is less than 5 mm in 2nd trimester, less than 7 mm in 3rd trimester. Cord: 3 vessel cord has orthotopic insertion. Bladder: Normal in size. Extremities: All 4 extremities are visualized. Lower extremities were not well seen. IMPRESSION: Single live intrauterine with appropriate growth for gestational age. Due to maternal body habitus, and the heart and feet were not well seen. Recommend follow-up in one to 2 weeks. Otherwise normal anatomy. Posterior placenta. Normal amniotic fluid volume. Reviewed by: Kaylen Mello MD on 04/07/2023 4:00 PM PST Approved by: Kaylen Mello MD on 04/07/2023 4:00 PM PST Station ID: [id number]
== END 2023-04-07 10:58 | disposition home or self-care (01) ==
LOC: DI 10:57
PROVIDERS: ATTEND Nurse Practitioner Obstetrics & Gynecology
DX: Z34.02 Encounter for supervision of normal first pregnancy, second trimester (principal); Z36.89 Encounter for other specified antenatal screening

== ENCOUNTER 2023-04-21 12:56 | Outpatient (CLI) | payer OTHER, MEDICAID ==
--- NOTE | 2023-04-21 18:06 | Ultrasound Report ---
PROCEDURE: OB Follow up INDICATIONS: SUPERVISION OF NORMAL PREG, FAS F/U OUTSIDE/PRIOR DATING DATA: Last menstrual period (LMP): 10/29/2022. LMP-based estimated date of delivery (SHARYN): 08/05/2023. First dating scan (date and location): 12/22/2022. Estimated date of delivery (SHARYN) from first dating scan: 08/24/2023. The below data below was generated using the working SHARYN of 08/24/2023 TECHNIQUE: Ultrasound of the gravid uterus was performed and recorded. COMPARISON: None. FINDINGS: General: A single live intrauterine gestation is present. Presentation: Breech Placenta: Placental position is posterior without previa. Amniotic fluid index: 13.6 cm, 37% percentile for gestational age. heart rate: 155 beats per minute. Maternal cervical canal: 3.8 cm long; normal length is 2.5 cm or more. Estimated gestational age by working dates: 22 week 1 day Composite gestational age by current ultrasound: Not applicable Estimated weight and percentile: Not applicable Other: Visualized anatomy is within normal limits IMPRESSION: Single live intrauterine consistent with 22 week 1 day gestation by current ultrasound Reviewed by: Daryl Blue MD on 04/21/2023 5:05 PM LEANDRO Approved by: Daryl Blue MD on 04/21/2023 5:05 PM [facility] Station ID: [id number]
== END 2023-04-21 12:57 | disposition home or self-care (01) ==
LOC: DI 12:56
PROVIDERS: ATTEND Nurse Practitioner Obstetrics & Gynecology
DX: Z34.02 Encounter for supervision of normal first pregnancy, second trimester (principal); Z36.89 Encounter for other specified antenatal screening

== ENCOUNTER 2023-05-14 11:43 | Outpatient (CLI) | payer MEDICAID ==
[2023-05-14 13:00] LABS: HCT - HEMATOCRIT 34.5 % (37.0-47.0); HGB - HEMOGLOBIN 10.7 g/dL (12.0-16.0); MEAN CORPUSCULAR HEMOGLOBIN 25.4 pg (27.0-31.0); MEAN CORPUSCULAR VOLUME 81.9 fL (81.0-99.0); MEAN PLATELET VOLUME 9.2 fL (7.9-10.8); RED BLOOD COUNT 4.21 10^6/uL (4.20-5.40); RED CELL DISTRIBUTION WIDTH 13.9 % (12.0-15.0); WHITE BLOOD COUNT 9.7 x10^3/uL (4.8-10.8)
== END 2023-05-14 11:44 | disposition home or self-care (01) ==
LOC: LAB 11:43
PROVIDERS: ATTEND Nurse Practitioner Obstetrics & Gynecology
DX: Z36.9 Encounter for antenatal screening, unspecified (principal)
CPT/HCPCS: 36415; 82950; 85027

== ENCOUNTER 2023-08-18 07:52 | Inpatient (IN) | payer MEDICAID ==
[2023-08-18] MEDS ORDERED: LACTATED RINGERS 1,000 ML IV PRN (08:19)
[2023-08-18] MEDS ORDERED: TRANEXAMIC ACID IN NACL 1,000 MG/100 ML BAG IV PRN (08:19)
[2023-08-18] MEDS ORDERED: lidocaine 1% 20 ML MDV ID PRN (08:19)
[2023-08-18] MEDS ORDERED: OXYTOCIN 10 UNIT/ML VIAL IM PRN (08:19)
[2023-08-18] MEDS ORDERED: CARBOPROST TROMETHAMINE 250 MCG/ML VIAL IM PRN (08:19)
[2023-08-18] MEDS ORDERED: METHYLERGONOVINE 0.2 MG/ML VIAL IM PRN (08:19)
--- NOTE | 2023-08-18 08:27 | HISTORY & PHYSICAL EXAMINATION ---
Admit History - : 6 Parity: 2 Premature: 0 Ectopic: 0 : 3 Care: positive: [facility] Risk/History: positive: Genital herpes, Labor induction Smoking Status: Never smoker - Mother's Labs Mother's Blood Type: positive: O Mother's RH: positive: Positive GBS: positive: Group B Step Negative Rubella Status: positive: Immune - Other Maternal History Other Maternal History: HPI: This 32 yo @ 39+1 weeks by LMP and concordant with u/s at 8wks at [facility]. She presents for scheduled elective induction of labor. SVE on 08/12, /-2. Today she is /-2, vertex presentation confirmed by exam. She has been a patient of [facility] since 15 weeks gestation. Her has remained uncomplicated. With the exception of anemia, HSV II, bipolar disease, anxiety and depression. ROS: All other symptoms reviewed and were negative except per HPI. 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 SAB x 2, TAB x 1. Last pap 07/13/22 reported normal. Denies history of gonorrhea, chlamydia, or any other STI. Hx genital herpes, oral herpes and treatment prior to delivery of previous pregnancies. Sexual partner does NOT have HSV (oral or genital). OB Hx: G1: 2014: TAB Aspiration G2:04/16/2020: Elective IOL at 39 weeks G3:12/2020: SAB (miscarriage) G4: SAB (miscarriage) G5: (02/26/2022) G6: Current Medical Hx: Bipolar disorder- stable on Latuda which she took throughout her last ; anxiety and depression- stable on sertraline Surgical Hx: none Social Hx: Lives w and 2 children. Sexual behavior: Monogamous with male partner Stopped drinking alcohol due to . Denies current use of tobacco, marijuana or other recreational drugs. Reports that she is safe in current relationship. Family Hx: Denies family history of congenital anomalies, Cystic Fibrosis or chromosomal abnormalities. Allergies: NKDA Objective: Pre- BMI: 30 Medications: 07/24/2021 Latuda 40mg 07/24/2021 PNV 07/24/2021 Sertralinew 50mg 05/20/2023 FeSO4 06/23/2023 Venofer 600 mg 08/08/2023 Acyclovir 400mg Blood Type= O, RH(D) POSITIVE Antibody Screen= NO ANTIBODIES DETECTED Hep B Surface Ag= Non-Reactive Hep C Virus Ab= Non-Reactive Gonorrhea=NOT DETECTED Chlamydia= NOT DETECTED Genetic screening: X declined/normal FAS: 04/07/2023: FAS WNL after 04/21/23 f/u scan. Posterior placenta, no previa. Size c/w dating (EFW 82%tile). 3VC. CHRISSY WNL glucola: 104 (05/14/2023) Tdap: 05/29/2023 GBS: Negative Physical exam: Normocephalic, atraumatic Heart RRR w/o M/G/R Lungs CTAB Abdomen gravid, soft, nontender. EFW 3600g FHR baseline 150, moderate variability, + accelerations, no decelerations Contractions palpate moderate every 3-6 minutes with soft resting tone SVE 4/80/-2, vertex, AROM (clear) Bilateral LE's no edema Mood is good. Assessment: 32 yo @ 39+1 weeks gestation by 8 wk U/S Term elective induction of labor FHR 150 GBS NEG Plan: Admit to [facility] for labor induction with AROM Intermittent heart rate auscultation. Jacuzzi PRN. Nitrous oxide PRN. Epidural per maternal request Anticipate . Patient gives verbal consent for my participation in a student role in her care. PREM Upton, Student Nurse Emotionally Impaired Teacher (Alejandra Quigley) - NST Procedure NST Procedure Start Time 23:30 Stop Time 00:05 Meds/Allgy - Home Medications Home Medications: Ambulatory Orders Medication Instructions Recorded Confirmed Docusate Sodium 250Mg Capsule 250 mg PO DAILY #10 cap 08/30/22 [Colace 250Mg Capsule] HYDROcod/ACETAM 5/325 [[place] 5/325] 1 each PO Q4H PRN #12 tablet 08/30/22 Ondansetron Odt [Zofran Odt] 4 mg TL Q6H PRN #10 tablet 08/30/22 Sertraline [Zoloft] 1 tab PO DAILY 08/30/22 08/30/22 - Allergies Allergies/Adverse Reactions: Allergies Allergy/AdvReac Type Severity Reaction Status Date / Time isopropyl alcohol Allergy Rash Verified 12/22/22 17:06 Sulfa (Sulfonamide Allergy Itching Verified 12/22/22 17:06 Antibiotics) Latex, Natural Rubber AdvReac Mild Itching Verified 12/22/22 17:06 Plan for Labor - Plan For Labor I expect patient to be DC'd or transferred within 96 hours.: Yes
[2023-08-18 08:30] LABS: BASOPHILS % (AUTO) 0.3 %; EOSINOPHILS # (AUTO) 0.1 10^3/uL (0.0-0.7); EOSINOPHILS % (AUTO) 1.3 %; HCT - HEMATOCRIT 35.5 % (37.0-47.0); HGB - HEMOGLOBIN 11.4 g/dL (12.0-16.0); LYMPHOCYTES # (AUTO) 1.7 10^3/uL (1.5-3.5); MEAN CORPUSCULAR HEMOGLOBIN 26.3 pg (27.0-31.0); MEAN CORPUSCULAR HGB CONC 32.1 g/dL (32.0-36.0); MEAN PLATELET VOLUME 9.7 fL (7.9-10.8); MONOCYTES # (AUTO) 0.4 10^3/uL (0.0-1.0); MONOCYTES % (AUTO) 4.4 %; NEUTROPHILS # (AUTO) 7.1 10^3/uL (1.5-6.6); NEUTROPHILS % (AUTO) 75.1 %; PLT - PLATELET COUNT 227 10^3/uL (130-450); RED BLOOD COUNT 4.33 10^6/uL (4.20-5.40); RED CELL DISTRIBUTION WIDTH 16.7 % (12.0-15.0); WHITE BLOOD COUNT 9.5 x10^3/uL (4.8-10.8)
--- NOTE | 2023-08-18 11:09 | PHARMACY PROGRESS NOTE ---
- Best Possible Medication History Admit Date and Time: 08/18/23818 Processed by: Pharmacy Medications reviewed in ED?: No Medication History completed: Yes Patient Interview: Completed Secondary Source(s): Insurance records As the person ultimately responsible for medication therapy, providers are able to order a medication from an existing home medication list in [facility] via the "Reconcile Routine" prior to Confirmation of that medication by network support analyst. Such practice is discouraged except when the physician, in their clinical judgment, deems that a medical need exists for a medication without regard to previous use.
--- NOTE | 2023-08-18 13:00 | DELIVERY NOTE ---
Delivery Note - Labor Labor: positive: Spontaneous - Delivery Method Delivery Method: positive: Spontaneous vaginal delivery - Presentation Presentation: positive: Vertex, OA - occiput anterior, ALDEN - left occiput anterior - Nuchal Cord Nuchal Cord: positive: None - Anesthetic Anesthetic Type: - Amniotic Fluid Description Amniotic Fluid Description: positive: Clear - [place] : positive: Placed in direct skin contact with mother, Bulb syringe, Stimulated, Warmed, [place] used, Warmer used sex: positive: Female - Cord Cord: positive: 3 vessels - Placenta Placenta: positive: Intact - Estimated Blood Loss Estimated Blood Loss (in cc): 475 - Post Delivery Events Post Delivery Events: positive: No post delivery events - Delivery Comments (Free Text/Narrative) Delivery Comments (Free Text/Narrative): This 32-year-old, . @ 39+1 weeks gestation by 8 week ultrasound presented @ 0800 in for induction of labor and in stable condition. Cervix was 4/80/-2 and Vertex presentation by exam. [place]ll[place] score 8. GBS negative, no treatment indicated. Induction by AROM @ 0844 FHR pattern demonstrated 150 baseline in a category I prior to second stage. Precipitous labor course. She then progressed to complete/complete and began pushing @ 1250. : Normal spontaneous vaginal delivery of a viable female infant on 08/18/2023 @ 1258. No Nuchal cord. The was placed on maternal abdomen, stimulated, dried and placed skin to skin. Apgars 9 @ 1 min, and 10 @ 5 minutes. Pitocin administered via IV for hemostasis. The umbilical cord was allowed to stop pulsating at which time it was doubly clamped by delivering provider and cut by FOB. 3VC. Cord blood was obtained. Fundal massage and gently cord traction applied for active management of the third stage, placenta delivered spontaneously and intact @1311 time. QBL 475. Placenta was WAS NOT sent to pathology. Thirty units of Pitocin were added to the IV fluid and allowed to run freely. Uterine massage was performed until uterus was deemed firm. Fourth stage: Uterine fundus firm and there is no excessive bleeding. The perineum, vagina and cervix were inspected and found to be intact. /skin to skin initiated. Family bonding well. Both mother and baby are in stable condition. PREM Upton, Student Nurse Vp Purchasing
[2023-08-18] MEDS: OXYTOCIN/SODIUM CHLORIDE 500 ML IV PRN (13:12)
[2023-08-18] MEDS ORDERED: HYDROCORTISONE 1% CREAM 28 GM TUBE PR PRN (13:25)
[2023-08-18] MEDS: ACETAMINOPHEN 500 MG TABLET PO SCH (13:52)
[2023-08-18] MEDS: IBUPROFEN 800 MG TABLET PO SCH (13:52)
[2023-08-18] MEDS: SODIUM CHLORIDE FLUSH 0.9% 10 ML SYRINGE IVP PRN (14:01)
[2023-08-18] MEDS: miSOPROStoL 200 MCG TABLET BC PRN (16:57)
[2023-08-18] MEDS: WITCH HAZEL/GLYCERIN 1 PAD TOP PRN (18:25)
[2023-08-19] MEDS: SERTRALINE 50 MG TABLET PO SCH (09:02)
[2023-08-19] MEDS: DOCUSATE SODIUM 100 MG CAPSULE PO SCH (09:03)
--- NOTE | 2023-08-19 09:23 | Discharge Plan ---
Discharge Plan Problem Reviewed?: Yes Disposition: Home, Self Care Condition: Good Diet: Regular Activity Restrictions: No Restrictions Shower Restrictions: No Driving Restrictions: No Instruction Topics: Vaginal, Self Care, No Smoking: If you smoke, Please STOP! Call for help. Follow-up with: Patricia Everett PA-C [Primary Care Provider] - Shreya Abad CNM, PREM [Provider Admit Priv/Credential] -
[2023-08-19 09:53] LABS: BASOPHILS % (AUTO) 0.2 %; EOSINOPHILS # (AUTO) 0.1 10^3/uL (0.0-0.7); EOSINOPHILS % (AUTO) 0.6 %; HCT - HEMATOCRIT 28.7 % (37.0-47.0); HGB - HEMOGLOBIN 9.3 g/dL (12.0-16.0); LYMPHOCYTES # (AUTO) 1.4 10^3/uL (1.5-3.5); LYMPHOCYTES % (AUTO) 11.9 %; MEAN CORPUSCULAR HEMOGLOBIN 26.7 pg (27.0-31.0); MEAN CORPUSCULAR HGB CONC 32.4 g/dL (32.0-36.0); MEAN CORPUSCULAR VOLUME 82.5 fL (81.0-99.0); MEAN PLATELET VOLUME 9.1 fL (7.9-10.8); MONOCYTES # (AUTO) 0.8 10^3/uL (0.0-1.0); MONOCYTES % (AUTO) 6.9 %; NEUTROPHILS # (AUTO) 9.2 10^3/uL (1.5-6.6); NEUTROPHILS % (AUTO) 79.3 %; PLT - PLATELET COUNT 172 10^3/uL (130-450); RED BLOOD COUNT 3.48 10^6/uL (4.20-5.40); RED CELL DISTRIBUTION WIDTH 16.9 % (12.0-15.0); WHITE BLOOD COUNT 11.6 x10^3/uL (4.8-10.8)
--- NOTE | 2023-08-19 09:55 | DISCHARGE SUMMARY ---
Discharge Summary Admit Date: 08/18/23 Discharge Date: 08/19/23 Discharging Provider: LORAINE Abad Primary Care Provider: LORAINE Abad Code Status: Attempt Resuscitation Condition at Discharge: Good Discharge Disposition: 01 Home, Self Care Discharge Facility Name: [facility] - DIAGNOSES Admission Diagnoses: Diagnosis on admission: 1. 32 yo @ 39+1 weeks by sure LMP and concordant with 8 week ultrasound 2. Term, elective induction of labor. 3. Anemia 4. GBS negative 5. RH positive 6. Other mental health disorders complicating , childbirth and the puerperium Diagnosis on Discharge 1. 32 yo s/p on 08/18/2023 viable female infant 2. Increased blood loss at the time of delivery (QBL 475) 3. RH positive 4. Anemia 5. Other mental health disorders complicating , childbirth and the puerperium 6. Brief History: She is a patient of [facility] who presented on 08/18/2023 for term elective induction of labor. She progressed quickly after AROM and labor otherwise progressed naturally medication management. Nitrous only use for pain management. Nitrous primarily only during pushing. Very sensitive to effects of nitrous and didn't feel present with use. Effects of nitrous reversed within minutes of stopping nitrous self administration. She spontaneously delivered a viable female infant apgars 9 and 10 at 1 and 5 minutes respectively. EBL 475 ml. intact perineum. Baby is sleepy today but otherwise breastfeeeding has been going well. She has been doing overall well in her course. She is ambulating and tolerating a regular diet. Some increased bleeding following delivery managed with additional 30U IV Pitocin and 800mcg BC misoprostol. [place] dehydrated and craving water and ice through the night. frequent small voids until a longer void this morning. Feels the bleeding is likely more than with previous pregnancies. Bleeding now well managed and and flow comparable to monthly menses. Feels she has had more colostrum with her previous pregnancies than this time . Discussed plan to repeat CBC, if H&H low, would like an IV iron infusion given her history of anemia and positive experiences with IV iron in the past. Her pain is well controlled without narcotic management. Resumed home dose of sertraline today. Mood overall good. Discussed depression at length. Suzi feels she is better supported at home and her and her have a good plan for shifts of baby care, care for older children and home, and rest. She will be discharged home today on PPD #1 and encouraged to take IBU and acetaminophen for prn for pain management, oral iron, and continue exiting prescription for sertraline. She intends to follow up with [facility] in 1 week by telehealth. She has been given precautions to call with any new concerning or concerning worsening symptoms such as fevers, chills, abdominal pain, increasing bleeding, or foul smelling vaginal lochia. PREM Upton, Student Nurse Technology Auditor - ALLERGIES Allergies/Adverse Reactions: Allergies Allergy/AdvReac Type Severity Reaction Status Date / Time isopropyl alcohol Allergy Rash Verified 12/22/22 17:06 Sulfa (Sulfonamide Allergy Itching Verified 12/22/22 17:06 Antibiotics) Latex, Natural Rubber AdvReac Mild Itching Verified 12/22/22 17:06 - MEDICATIONS Home Medications: Ambulatory Orders Medication Instructions Recorded Confirmed Sertraline [Zoloft] 50 mg PO DAILY 08/30/22 08/18/23 Acyclovir 400 mg PO TID 08/18/23 08/18/23 Ferrous Sulfate [Feosol] 325 mg PO BID 08/18/23 08/18/23 Pnv No.121/Iron/Folic Acid 1 each PO DAILY 08/18/23 08/18/23 [ Multivitamin Tablet] - PHYSICAL EXAM AT DISCHARGE General Appearance: positive: No acute distress Eyes Bilateral: positive: Normal inspection Neck: positive: Nml inspection Cardiovascular: positive: Regular rate & rhythm Peripheral Pulses: positive: 2+ Abdomen: positive: Non-tender Skin: positive: Color nml Neurologic/Psychiatric: positive: Oriented x3, Sensation nml, Mood/affect nml (normal uterine involution. ) - LABS Result Diagrams: 08/18/23 08:20
--- NOTE | 2023-08-19 12:58 | PROVIDER PROGRESS NOTE ---
Subjective - Subjective Subjective: Document created in error. Objective - Vital Signs/Intake & Output Vital Signs: Vital Signs x48h Temp Pulse Resp BP Pulse Ox 08/19/23 09:06 36.5 C 81 14 108/63 99 Intake & Output: Intake & Output 08/16/23 08/17/23 08/18/23 08/19/23 23:59 23:59 23:59 23:59 Intake Total 500 Output Total 375 Balance 125 - Lab Results Fish Bones: 08/19/23 09:47 Other Labs: Lab Results x24hrs 08/19/23 Range/Units 09:47 WBC 11.6 H (4.8-10.8) x10^3/uL RBC 3.48 L (4.20-5.40) 10^6/uL Hgb 9.3 L (12.0-16.0) g/dL Hct 28.7 L (37.0-47.0) % MCV 82.5 (81.0-99.0) fL MCH 26.7 L (27.0-31.0) pg MCHC 32.4 (32.0-36.0) g/dL RDW 16.9 H (12.0-15.0) % Plt Count 172 (130-450) 10^3/uL MPV 9.1 (7.9-10.8) fL Neut # (Auto) 9.2 H (1.5-6.6) 10^3/uL Lymph # (Auto) 1.4 L (1.5-3.5) 10^3/uL [place] # (Auto) 0.8 (0.0-1.0) 10^3/uL Eos # (Auto) 0.1 (0.0-0.7) 10^3/uL Baso # (Auto) 0.0 (0.0-0.1) 10^3/uL Absolute Nucleated RBC 0.00 x10^3/uL Nucleated RBC % 0.0 /100WBC
--- NOTE | 2023-08-19 13:03 | PROVIDER PROGRESS NOTE ---
Subjective - Subjective Subjective: I was in direct supervision of the student throughout the duration of the patient stay and agree with above documentation. Objective - Vital Signs/Intake & Output Vital Signs: Vital Signs x48h Temp Pulse Resp BP Pulse Ox 08/19/23 09:06 36.5 C 81 14 108/63 99 Intake & Output: Intake & Output 08/16/23 08/17/23 08/18/23 08/19/23 23:59 23:59 23:59 23:59 Intake Total 500 Output Total 375 Balance 125 - Lab Results Fish Bones: 08/19/23 09:47 Other Labs: Lab Results x24hrs 08/19/23 Range/Units 09:47 WBC 11.6 H (4.8-10.8) x10^3/uL RBC 3.48 L (4.20-5.40) 10^6/uL Hgb 9.3 L (12.0-16.0) g/dL Hct 28.7 L (37.0-47.0) % MCV 82.5 (81.0-99.0) fL MCH 26.7 L (27.0-31.0) pg MCHC 32.4 (32.0-36.0) g/dL RDW 16.9 H (12.0-15.0) % Plt Count 172 (130-450) 10^3/uL MPV 9.1 (7.9-10.8) fL Neut # (Auto) 9.2 H (1.5-6.6) 10^3/uL Lymph # (Auto) 1.4 L (1.5-3.5) 10^3/uL [place] # (Auto) 0.8 (0.0-1.0) 10^3/uL Eos # (Auto) 0.1 (0.0-0.7) 10^3/uL Baso # (Auto) 0.0 (0.0-0.1) 10^3/uL Absolute Nucleated RBC 0.00 x10^3/uL Nucleated RBC % 0.0 /100WBC
[2023-08-19] MEDS: SODIUM CHLORIDE FLUSH 0.9% 10 ML SYRINGE IVP SCH (13:23)
[2023-08-19] MEDS: FERRIC GLUCONATE 125 MG in SODIUM CHLORIDE 0.9% 100ML 100 ML IV ONE (13:25)
[2023-08-19 13:36] VITALS: BP 105/58; O2SAT 97
--- NOTE | 2023-08-19 17:21 | Labor Flowsheet ---
Labor Flowsheet Datetime Report Generated by CPN: 08/19/2023 17:20 Datetime: 08/19/2023 13:33 VITAL SIGNS NBP Sys/Yaima/Mean (mmHg): 105 : 58 : 70 Pulse: 73 Datetime: 08/18/2023 19:39 SpO2 (%): 97 Datetime: 08/18/2023 15:10 Respirations: 18 Temperature (C): 37.1 Temperature Route: Oral Datetime: 08/18/2023 14:14 Stage of : Recovery Datetime: 08/18/2023 13:54 PAIN Pain Scale: 4 Pain Presence: Intermittent Pain Type: Cramping Pain Location: Abdomen; Back; Perineum Datetime: 08/18/2023 13:39 Pain Goal: 4 Pain Relief Measures: Comfort Measures Datetime: 08/18/2023 13:15 Stage 2 Comments: QBL 475 Datetime: 08/18/2023 13:09 LaborFlag: Labor Datetime: 08/18/2023 12:50 STAGE 2 Pushing: Urge to Push; Involuntary Pushing Pushing Position: Pushing Right Side Pushing Progress: Descent with Pushing; Perineal Bulging Datetime: 08/18/2023 12:48 Comments: Stobaugh RN adjusting monitor. Stobaugh RN, and Pollo CNM, and Burckhardt SNM all continu ously at bedside. Patient writhing Datetime: 08/18/2023 12:37 VAGINAL EXAM Dilatation (cm): 9.5 Effacement (%): 100 Station: 0 Exam by: Burckhardt, SNM Vaginal Bleeding: Normal Show Vaginal Exam Comments: cervix on right Datetime: 08/18/2023 12:35 COMMUNICATION Communication: Provider at Bedside Provider Notified (Name): Pollo, CNM, Burckhardt, SNM Datetime: 08/18/2023 12:32 Patient Care Comments: Peanet ball between legs Datetime: 08/18/2023 12:30 UTERINE ACTIVITY Monitor Mode: External Frequency (min): 2-3 Quality: Strong Duration (sec): 50-80 Pattern: Normal: <= 5 Contractions in 10 Minutes Resting Tone (Palpate): Relaxed ASSESSMENT A Monitor Mode: Telemetry FHR Baseline Rate : 150 Variability: Moderate 6-25 bpm Accelerations: 15X15 Decelerations: Early Category: Category I Datetime: 08/18/2023 12:20 Membranes Ruptured Date/Time: 08/18/2023 08:44 Amniotic Fluid Color: Bloody Amniotic Fluid Odor: None Datetime: 08/18/2023 12:18 Pain Coping: Breathing Through Contractions Comfort Measures: Breathing/Relaxation; Coaching; Back Rub Given; Family Support Datetime: 08/18/2023 12:12 Pain Assessment Comments: nitrous oxide per patient request Datetime: 08/18/2023 12:11 MEDICATIONS Medication Comments: Nitrous started, rules for medication discussed with patient and partner. Bot h verbalized understanding. Will cont. to monitor. Datetime: 08/18/2023 11:51 PATIENT CARE Patient Position/Activity: Right Lateral; Right Extreme Datetime: 08/18/2023 11:49 Monitor Interventions for UA: [place] Adjusted Datetime: 08/18/2023 11:36 Strip Reviewed by: Shreya Abad CNM Datetime: 08/18/2023 10:58 FHR Baseline Changes: No Baseline Change Datetime: 08/18/2023 10:27 I/O Interventions: Up to BR Datetime: 08/18/2023 09:55 Communication Comments: assumed care of patient at 0955 from C.S. Datetime: 08/18/2023 08:44 Membrane Status: Ruptured Membranes Rupture Method: Artificial Amniotic Fluid Amount: Small Cervix, Consistency: Soft Cervix, Position: Posterior
== END 2023-08-19 15:17 | disposition home or self-care (01) | DRG 806 ==
LOC: WFO 07:52 → FBP 07:54 → WFO 08:18 → FBP 08:19
PROVIDERS: ADMIT Nurse Practitioner Obstetrics & Gynecology; ATTEND Nurse Practitioner Obstetrics & Gynecology
PROC: 10E0XZZ Delivery of Products of Conception, External Approach (ICD-10-PCS; principal; 2023-08-18)
PROC: 10907ZC Drainage of Amniotic Fluid, Therapeutic from Products of Conception, Via Natural or Artificial Opening (ICD-10-PCS; 2023-08-18)
DX: O99.02 Anemia complicating childbirth (principal); O72.1 Other immediate postpartum hemorrhage; Z37.0 Single live birth; O98.32 Other infections with a predominantly sexual mode of transmission complicating childbirth; A60.00 Herpesviral infection of urogenital system, unspecified; O99.344 Other mental disorders complicating childbirth; Z3A.39 39 weeks gestation of pregnancy; F31.9 Bipolar disorder, unspecified; F41.9 Anxiety disorder, unspecified
CPT/HCPCS: 36415; 59409; 85025; 86850; 86900; 86901; A9270; J2916

== ENCOUNTER 2023-09-06 22:07 | Emergency (ER) | payer MEDICAID ==
[2023-09-06] MEDS: SODIUM CHLORIDE 0.9% 1,000 ML IV STA (22:30)
[2023-09-06 22:45] LABS: BASOPHILS % (AUTO) 0.4 %; EOSINOPHILS # (AUTO) 0.1 10^3/uL (0.0-0.7); HCT - HEMATOCRIT 37.6 % (37.0-47.0); HGB - HEMOGLOBIN 12.1 g/dL (12.0-16.0); LYMPHOCYTES # (AUTO) 0.7 10^3/uL (1.5-3.5); LYMPHOCYTES % (AUTO) 6.8 %; MEAN CORPUSCULAR HEMOGLOBIN 26.4 pg (27.0-31.0); MEAN CORPUSCULAR HGB CONC 32.2 g/dL (32.0-36.0); MEAN CORPUSCULAR VOLUME 82.1 fL (81.0-99.0); MEAN PLATELET VOLUME 9.3 fL (7.9-10.8); MONOCYTES # (AUTO) 0.4 10^3/uL (0.0-1.0); MONOCYTES % (AUTO) 3.9 %; NEUTROPHILS # (AUTO) 9.2 10^3/uL (1.5-6.6); NEUTROPHILS % (AUTO) 87.4 %; PLT - PLATELET COUNT 271 10^3/uL (130-450); RED BLOOD COUNT 4.58 10^6/uL (4.20-5.40); RED CELL DISTRIBUTION WIDTH 14.3 % (12.0-15.0); WHITE BLOOD COUNT 10.5 x10^3/uL (4.8-10.8)
--- NOTE | 2023-09-06 22:54 | ED Physician Documentation ---
History of Present Illness - Stated complaint Stated Complaint: FEVER/SPOTTING [employer]OR - Chief complaint Chief Complaint: Fever - History obtained from History obtained from: Patient - Additonal information Additional information: HPI from patient. Patient c/o fever Tmax over 102 tonight, with generalized weakness, dizziness. Symptoms started earlier this evening. Denies abdominal/pelvic pain. Denies dyspnea, cough, n/v. FTNSVD 3 weeks ago without complications. Review of Systems Constitutional: reports: Fever, Chills, Myalgias, Fatigue, Sweats GI: denies: Abdominal Pain, Nausea, Vomiting, Constipation, Diarrhea : denies: Dysuria, Frequency Neurologic: reports: Generalized weakness. 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 : None HEENT: Chronic vision loss Psych: Depression, Anxiety, Bipolar disorder, Panic attacks Musculoskeletal: None Derm: None - Past Surgical History Past Surgical History: Yes General: Cholecystectomy, Hiatal hernia repair Ortho: Other - Present Medications Home Medications: Ambulatory Orders Medication Instructions Recorded Confirmed Sertraline [Zoloft] 50 mg PO DAILY 08/30/22 09/06/23 Acyclovir 400 mg PO TID 08/18/23 09/06/23 Ferrous Sulfate [Feosol] 325 mg PO BID 08/18/23 09/06/23 Pnv No.121/Iron/Folic Acid 1 each PO DAILY 08/18/23 09/06/23 [ Multivitamin Tablet] - Allergies Allergies/Adverse Reactions: Allergies Allergy/AdvReac Type Severity Reaction Status Date / Time isopropyl alcohol Allergy Rash Verified 09/06/23 22:11 Sulfa (Sulfonamide Allergy Itching Verified 09/06/23 22:11 Antibiotics) Latex, Natural Rubber AdvReac Mild Itching Verified 09/06/23 22:11 - Social History Does the pt smoke?: No Smoking Status: Never smoker Does the pt drink ETOH?: No Does the pt have substance abuse?: No - Immunizations Immunizations are current?: Yes - POLST Patient has POLST: No PD ED PE NORMAL - Vitals Vital signs reviewed: Yes - General General: Alert and oriented X 3, No acute distress, Well developed/nourished - HEENT HEENT: Moist mucous membranes - Neck Neck: Supple, no meningeal sign - Cardiac Cardiac: No murmur - Respiratory Respiratory: No respiratory distress, Clear bilaterally - Abdomen Abdomen: Normal bowel sounds, Soft, Non tender, Non distended - Back Back: No CVA TTP - Derm Derm: Normal color - Extremities Extremities: No edema PD ED PE EXPANDED - Cardiac Cardiac: Tachy, Regular Rhythm Results - Vitals Vitals: Oxygen O2 Source Room air - Labs Labs: Microbiology 09/06/23 22:55 Blood Culture - Preliminary Blood - Right Arm NO GROWTH AFTER 1 DAY 09/06/23 22:25 Blood Culture - Preliminary Blood NO GROWTH AFTER 1 DAY Laboratory Tests 09/06/23 09/06/23 09/06/23 22:20 22:25 22:25 WBC 10.5 RBC 4.58 Hgb 12.1 Hct 37.6 MCV 82.1 MCH 26.4 L MCHC 32.2 RDW 14.3 Plt Count 271 MPV 9.3 Neut # (Auto) 9.2 H Lymph # (Auto) 0.7 L [place] # (Auto) 0.4 Eos # (Auto) 0.1 Baso # (Auto) 0.0 Absolute Nucleated RBC 0.00 Nucleated RBC % 0.0 Sodium 135 Potassium 3.1 L Chloride 104 Carbon Dioxide 22 Anion Gap 9.0 BUN 13 Creatinine 0.9 Estimated GFR (MDRD) 73 L Glucose 132 H Lactic Acid Calcium 9.2 Total Bilirubin 0.6 AST 23 ALT 23 Alkaline Phosphatase 132 H Total Protein 7.1 Albumin 4.1 Globulin 3.0 Albumin/Globulin Ratio 1.4 Lipase 25 Urine Color YELLOW Urine Clarity HAZY Urine pH 7.0 Ur Specific [place] 1.020 Urine Protein 30 H Urine Glucose (UA) 100 H Urine Ketones TRACE Urine Occult Blood SMALL H Urine Nitrite NEGATIVE Urine Bilirubin SMALL H Urine Urobilinogen 4 H Ur Leukocyte Esterase TRACE H Urine RBC 6-10 H Urine WBC 4-5 Ur Squamous Epith Cells MANY Squamous H Amorphous Sediment Marked Urine Bacteria Few Ur Microscopic Review INDICATED Urine Culture Comments NOT INDICATED Nasal Adenovirus (PCR) Nasal B. parapertussis DNA (PCR) Nasal Coronavir 229E PCR Nasal Coronavir HKU1 PCR Nasal Coronavir NL63 PCR Nasal Coronavir OC43 PCR Nasal Enterovir/Rhinovir PCR Nasal Influenza B PCR Nasal Influenza A PCR Nasal Parainfluen 1 PCR Nasal Parainfluen 2 PCR Nasal Parainfluen 3 PCR Nasal Parainfluen 4 PCR Nasal RSV (PCR) Nasal B.pertussis DNA PCR Nasal C.pneumoniae (PCR) Brody Human Metapneumo PCR Nasal M.pneumoniae (PCR) Nasal SARS-CoV-2 (PCR) 09/06/23 09/06/23 22:30 22:30 WBC RBC Hgb Hct MCV MCH MCHC RDW Plt Count MPV Neut # (Auto) Lymph # (Auto) [place] # (Auto) Eos # (Auto) Baso # (Auto) Absolute Nucleated RBC Nucleated RBC % Sodium Potassium Chloride Carbon Dioxide Anion Gap BUN Creatinine Estimated GFR (MDRD) Glucose Lactic Acid 0.9 Calcium Total Bilirubin AST ALT Alkaline Phosphatase Total Protein Albumin Globulin Albumin/Globulin Ratio Lipase Urine Color Urine Clarity Urine pH Ur Specific [place] Urine Protein Urine Glucose (UA) Urine Ketones Urine Occult Blood Urine Nitrite Urine Bilirubin Urine Urobilinogen Ur Leukocyte Esterase Urine RBC Urine WBC Ur Squamous Epith Cells Amorphous Sediment Urine Bacteria Ur Microscopic Review Urine Culture Comments Nasal Adenovirus (PCR) NOT DETECTED Nasal B. parapertussis DNA (PCR) NOT DETECTED Nasal Coronavir 229E PCR NOT DETECTED Nasal Coronavir HKU1 PCR NOT DETECTED Nasal Coronavir NL63 PCR NOT DETECTED Nasal Coronavir OC43 PCR NOT DETECTED Nasal Enterovir/Rhinovir PCR NOT DETECTED Nasal Influenza B PCR NOT DETECTED Nasal Influenza A PCR NOT DETECTED Nasal Parainfluen 1 PCR NOT DETECTED Nasal Parainfluen 2 PCR NOT DETECTED Nasal Parainfluen 3 PCR NOT DETECTED Nasal Parainfluen 4 PCR NOT DETECTED Nasal RSV (PCR) NOT DETECTED Nasal B.pertussis DNA PCR NOT DETECTED Nasal C.pneumoniae (PCR) NOT DETECTED [place] Human Metapneumo PCR NOT DETECTED Nasal M.pneumoniae (PCR) NOT DETECTED Nasal SARS-CoV-2 (PCR) NOT DETECTED PD Medical Decision Making - ED course Complexity details: reviewed results, re-evaluated patient, considered differential, d/w patient ED course: Febrile (38.5) in triage but defervesces after 650 mg acetaminophen given shortly after ED arrival (and remained afebrile for remainder of ED stay). Unremarkable CBC including normal WBC, hgb/hct, platelets. Normal ER abdominal panel except mild hypokalemia (3.1) and mild hyperglycemia (132). Normal LFTs except for mildly elevated alkaline phosphatase, and lipase is normal. Respiratory PCR panel is negative for viruses tested on this panel including COVID and influenza. UA with some abnormalities but overall nondiagnostic results (6-10 rbc/hpf, but only 4-5 wbc/hpf (the latter is considered WNL), many squamous cells (and thus contaminated specimen), few bacteria); patient is denying UTI symptoms (frequency, burning). Along with resolution of fever, so did her tachycardia resolve; presented with ST 130s but normal heart rates for remainder of ED stay. Normotensive throughout ED stay except for a single BP reading of 98/47 which is suspected to have been due to inappropriate cuff position (was nearly on elbow/forearm when checked), and immediate rechecks after repositioning of cuff were within 100s-110s SBP ranges. No imaging undertaken (lungs CTA bilaterally with no c/o cough nor dyspnea, abd/pelvis nontender both initially and on reevaluation prior to d/c). The source of fever is not apparent at this time. There is no indication of bacterial infection (such that would require/indicate specific intervention such as antibiotic, further testing, and/or intpatient treatment). Patient is well- appearing on my initial evaluation as well as reevaluation prior to d/c. Results d/w patient, return precautions carefully reviewed, and she is advised to contact her PCP to arrange for immediate appointment for reevaluation if she is still symptomatic (including fevers) by Friday. Departure - Departure Disposition: Home, Self Care Clinical Impression: Hypokalemia Fever Qualifiers: Fever type: unspecified Qualified Code(s): R50.9 - Fever, unspecified Condition: Good Instructions: ED Fever Unconf Cause, ED Potassium Deficiency Comments: There were no concerning nor diagnostic findings on tonight's tests including the blood test, urinalysis. The cause of your fever is not apparent at this time. The nasal swab was negative for the viruses tested on this panel including COVID and influenza. The only notable abnormality on the blood tests was a low potassium level. This is an incidental finding and not nearly low enough to cause immediate concern, but you should mention this finding to your primary care provider (potassium 3.1), as they might recommend having the level repeated in the outpatient setting. You were given a dose of potassium bicarbonate orally prior to discharge to raise the potassium level Discharge Date/Time: 09/07/23 01:45
[2023-09-06] MEDS: ACETAMINOPHEN 325 MG TABLET PO STA (22:56)
[2023-09-06 22:58] LABS: ALBUMIN 4.1 g/dL (3.2-5.5); ALBUMIN/GLOBULIN RATIO 1.4 (1.0-2.2); BILIRUBIN,TOTAL 0.6 mg/dL (0.2-1.0); CALCIUM 9.2 mg/dL (8.5-10.3); CREATININE 0.9 mg/dL (0.6-1.3); POTASSIUM 3.1 mmol/L (3.5-4.5); TOTAL PROTEIN 7.1 g/dL (6.4-8.9)
[2023-09-06 23:48] LABS: BILIRUBIN,URINE SMALL (NEGATIVE); GLUCOSE, URINE (UA) 100 mg/dL (NEGATIVE); KETONES,URINE (UA) TRACE mg/dL (NEGATIVE); LEUKOCYTE ESTERASE, URINE TRACE (NEGATIVE); NITRITE,URINE NEGATIVE (NEGATIVE); OCCULT BLOOD,URINE SMALL (NEGATIVE); PROTEIN,URINE 30 mg/dL (NEGATIVE); UROBILINOGEN,URINE 4 E.U./dL (NORMAL)
[2023-09-07 00:05] LABS: B. PARAPERTUSSIS- RESP PCR PAN NOT DETECTED; B. PERTUSSIS- RESP PCR PANEL NOT DETECTED; C. PNEUMONIAE- RESP PCR PANEL NOT DETECTED; CORONAVIRUS 229E-RESP PCR NOT DETECTED; CORONAVIRUS HKU1-RESP PCR NOT DETECTED; CORONAVIRUS NL63-RESP PCR NOT DETECTED; CORONAVIRUS OC43-RESP PCR NOT DETECTED; HUMAN METAPNEUMOVIRUS NOT DETECTED; INFLUENZA A- RESP PCR PANEL NOT DETECTED; INFLUENZA B - RESP PCR PANEL NOT DETECTED; M. PNEUMONIAE- RESP PCR PANEL NOT DETECTED; PARAINFLUENZA VIRUS 1 NOT DETECTED; PARAINFLUENZA VIRUS 2 NOT DETECTED; PARAINFLUENZA VIRUS 3 NOT DETECTED; PARAINFLUENZA VIRUS 4 NOT DETECTED; RHINOVIRUS/ENTEROVIRUS NOT DETECTED; RSV- RESP PCR PANEL NOT DETECTED; SARS-CoV-2 -RESP PCR PANEL NOT DETECTED
[2023-09-07 00:10] LABS: AMORPHOUS SEDIMENT,UR Marked /LPF; BACTERIA,URINE Few /HPF (None Seen); CLARITY,URINE HAZY (CLEAR); SQUAMOUS EPITHELIAL CELL,UR MANY Squamous (<= Few)
[2023-09-07] MEDS: POTASSIUM BICARB 25 MEQ TABLET PO STA (01:37)
[2023-09-07 01:42] VITALS: BP 110/64; O2SAT 98
== END 2023-09-07 01:45 | disposition home or self-care (01) ==
LOC: ED 22:07
DX: O99.285 Endocrine, nutritional and metabolic diseases complicating the puerperium (principal); E87.6 Hypokalemia; O86.4 Pyrexia of unknown origin following delivery
CPT/HCPCS: 36415; 80053; 81001; 83605; 83690; 85025; 87040; 87633; 96360; 99284; A9270; 81003; 83615; 87086